=== PATIENT | female | born 1945 | race Caucasian/White ===

== ENCOUNTER 2016-11-10 07:24 | Outpatient (CLI) | payer MEDICARE, OTHER | END 2016-11-10 07:25 | disposition home or self-care (01) | DX: E11.42 Type 2 diabetes mellitus with diabetic polyneuropathy (principal) ==

== ENCOUNTER 2016-12-17 17:03 | Outpatient (CLI) | payer MEDICARE, OTHER | END 2016-12-17 17:04 | disposition home or self-care (01) | DX: N28.1 Cyst of kidney, acquired (principal); R93.2 Abnormal findings on diagnostic imaging of liver and biliary tract; R10.9 Unspecified abdominal pain; R14.0 Abdominal distension (gaseous) ==

== ENCOUNTER 2016-12-23 07:45 | Outpatient (CLI) | payer MEDICARE, OTHER | END 2016-12-23 07:46 | disposition home or self-care (01) | DX: R10.9 Unspecified abdominal pain (principal); R14.0 Abdominal distension (gaseous); R19.7 Diarrhea, unspecified; Z79.899 Other long term (current) drug therapy ==

== ENCOUNTER 2016-12-27 07:27 | Outpatient (CLI) | payer MEDICARE, OTHER | END 2016-12-27 07:28 | disposition home or self-care (01) | DX: E11.42 Type 2 diabetes mellitus with diabetic polyneuropathy (principal) ==

== ENCOUNTER 2016-12-29 12:35 | Outpatient (CLI) | payer MEDICARE, OTHER ==
[2016-12-29] MEDS ORDERED: IOPAMIDOL-300 100 ML VIAL IVP ONE (14:02)
[2016-12-29] MEDS ORDERED: IOPAMIDOL-300 50 ML VIAL PO ONE (19:19)
== END 2016-12-29 12:36 | disposition home or self-care (01) ==
DX: R93.5 Abnormal findings on diagnostic imaging of other abdominal regions, including retroperitoneum (principal); K76.0 Fatty (change of) liver, not elsewhere classified
CPT/HCPCS: 74170; Q9967

== ENCOUNTER 2017-02-09 13:14 | Outpatient (CLI) | payer MEDICARE, OTHER | END 2017-02-09 13:15 | disposition home or self-care (01) | DX: Z12.31 Encounter for screening mammogram for malignant neoplasm of breast (principal) ==

== ENCOUNTER 2017-05-09 08:00 | Outpatient (CLI) | payer MEDICARE, OTHER ==
[2017-05-09 12:09] LABS: ALBUMIN/GLOBULIN RATIO 1.2 (1.0-2.2); BILIRUBIN,TOTAL 0.7 mg/dL (0.2-1.0); BUN - BLOOD UREA NITROGEN 19 mg/dL (6-20); CALCIUM 9.1 mg/dL (8.5-10.3); CARBON DIOXIDE - CO2 28 mmol/L (21-32); CHLORIDE 102 mmol/L (101-111); CHOL/HDL RATIO 2.8 (<4.4); CHOLESTEROL 128 mg/dL; GFR - MDRD 55 (>89); GLUCOSE 136 mg/dL (70-100); HDL CHOLESTEROL 46 mg/dL; LDL/HDL RATIO 1.4 (<4.4); POTASSIUM 4.3 mmol/L (3.5-5.0); SODIUM 139 mmol/L (135-145); TOTAL PROTEIN 6.9 g/dL (6.7-8.2); TRIGLYCERIDES 80 mg/dL; VLDL CHOLESTEROL 16 mg/dL
[2017-05-09 12:13] LABS: HEMOGLOBIN A1C 0.53 g/dL
== END 2017-05-09 08:01 | disposition home or self-care (01) ==
LOC: LAB.F 08:00
PROVIDERS: ATTEND Family Medicine
DX: E11.42 Type 2 diabetes mellitus with diabetic polyneuropathy (principal); E78.5 Hyperlipidemia, unspecified; E03.9 Hypothyroidism, unspecified; I10 Essential (primary) hypertension
CPT/HCPCS: 36415; 80053; 80061; 83036; 84443

== ENCOUNTER 2017-05-12 14:33 | Outpatient (CLI) | payer MEDICARE, OTHER ==
[2017-05-12 19:35] LABS: BILIRUBIN,URINE NEGATIVE (NEGATIVE); UA CHARGE (STRIP ONLY) YES
== END 2017-05-12 14:34 | disposition home or self-care (01) ==
LOC: LAB.R 14:33
PROVIDERS: ATTEND Physician Assistant Medical
DX: N39.0 Urinary tract infection, site not specified (principal)
CPT/HCPCS: 81001; 81003

== ENCOUNTER 2017-11-21 07:48 | Outpatient (CLI) | payer MEDICARE, OTHER ==
[2017-11-21 10:36] LABS: BASOPHILS # (AUTO) 0.1 10^3/uL (0.0-0.1); BASOPHILS % (AUTO) 1.1 %; EOSINOPHILS # (AUTO) 0.5 10^3/uL (0.0-0.7); EOSINOPHILS % (AUTO) 4.7 %; LYMPHOCYTES # (AUTO) 2.5 10^3/uL (1.5-3.5); LYMPHOCYTES % (AUTO) 26.3 %; MEAN CORPUSCULAR HEMOGLOBIN 26.9 pg (27.0-31.0); MEAN CORPUSCULAR HGB CONC 32.8 g/dL (32.0-36.0); MEAN CORPUSCULAR VOLUME 81.9 fL (81.0-99.0); MONOCYTES # (AUTO) 0.9 10^3/uL (0.0-1.0); NEUTROPHILS # (AUTO) 5.7 10^3/uL (1.5-6.6); NEUTROPHILS % (AUTO) 58.9 %; PLT - PLATELET COUNT 320 10^3/uL (130-450); RED CELL DISTRIBUTION WIDTH 16.1 % (12.0-15.0); WHITE BLOOD COUNT 9.7 x10^3/uL (4.8-10.8)
[2017-11-21 12:19] LABS: BUN - BLOOD UREA NITROGEN 21 mg/dL (6-20); CALCIUM 8.7 mg/dL (8.5-10.3); CARBON DIOXIDE - CO2 26 mmol/L (21-32); CHLORIDE 102 mmol/L (101-111); CHOL/HDL RATIO 3.1 (<4.4); CHOLESTEROL 133 mg/dL; GFR - MDRD 55 (>89); GLUCOSE 114 mg/dL (70-100); HDL CHOLESTEROL 43 mg/dL; LDL CHOLESTEROL,CALCULATED 63 mg/dL; LDL/HDL RATIO 1.5 (<4.4); SODIUM 135 mmol/L (135-145); VLDL CHOLESTEROL 27 mg/dL
[2017-11-21 12:28] LABS: HB2 TOTAL 11.8 g/dL; HEMOGLOBIN A1C 0.54 g/dL; HEMOGLOBIN A1C % 6.3 % (4.6-6.2)
== END 2017-11-21 07:49 | disposition home or self-care (01) ==
LOC: LAB.F 07:48
PROVIDERS: ATTEND Family Medicine
DX: E11.42 Type 2 diabetes mellitus with diabetic polyneuropathy (principal); I10 Essential (primary) hypertension; E78.00 Pure hypercholesterolemia, unspecified; E03.9 Hypothyroidism, unspecified; D64.9 Anemia, unspecified
CPT/HCPCS: 36415; 80048; 80061; 83036; 83721; 84443; 85025

== ENCOUNTER 2017-12-22 08:00 | Outpatient (CLI) | payer MEDICARE, OTHER ==
[2017-12-22 18:45] LABS: CLARITY,URINE CLOUDY (CLEAR)
[2017-12-22 18:46] LABS: BACTERIA,URINE Rare /HPF (None Seen); RBC,URINE TNTC /HPF (0-5); SQUAMOUS EPITHELIAL CELL,UR RARE Squamous (<= Few)
== END 2017-12-22 08:01 ==
LOC: LAB.R 08:00
PROVIDERS: ATTEND Physician Assistant Medical
DX: N39.0 Urinary tract infection, site not specified (principal)
CPT/HCPCS: 81001; 87086

== ENCOUNTER 2018-06-13 13:38 | Outpatient (CLI) | payer MEDICARE, OTHER ==
--- NOTE | 2018-06-14 09:09 | Mammography Report ---
Reason: SCREENING MAMMO Procedure Date: 06/13/2018 Accession Number: [id number] / [id number] Procedure: DORINDA - Screening Mammo Dig Bilat CPT Code: FULL RESULT: EXAM: Screening Mammo Dig Bilat DATE: 06/13/2018 2:08 PM CLINICAL HISTORY: 73-year-old female with family history of breast cancer in the mother at age 50 and the aunt at age 60, the grandmother age 60 and a cousin at age 40 as well as a male relative at age 55. TECHNIQUE: Bilateral CC and MLO views were obtained. COMPARISON: 02/09/2017, 01/21/2016, 12/16/2014, 11/29/2013. FINDINGS: The breasts demonstrate heterogeneously dense fibroglandular parenchyma bilaterally. Coarse typically benign calcifications are seen bilaterally. No suspicious masses, clustered microcalcifications, or regions of architectural distortion are identified. IMPRESSION: Benign findings RECOMMENDATION: Routine annual screening unless otherwise clinically indicated. BIRADS CATEGORY 2: Benign findings STANDARD QUALIFYING STATEMENTS: 1. This examination was reviewed without the aid of Computer-Aided Detection (CAD). 2. A negative or benign imaging report should not delay biopsy if clinically suspicious findings are present. Consider surgical consultation if warrented. More than 5% of cancers are not identified by imaging. 3. Dense breasts may obscure an underlying neoplasm.
== END 2018-06-13 13:39 | disposition home or self-care (01) ==
LOC: DI 13:38
DX: Z12.31 Encounter for screening mammogram for malignant neoplasm of breast (principal); Z80.3 Family history of malignant neoplasm of breast
CPT/HCPCS: 77067

== ENCOUNTER 2018-07-04 07:55 | Outpatient (CLI) | payer MEDICARE, OTHER ==
[2018-07-04 11:04] LABS: HGB - HEMOGLOBIN 11.4 g/dL (12.0-16.0); MEAN CORPUSCULAR HEMOGLOBIN 26.6 pg (27.0-31.0); MEAN CORPUSCULAR HGB CONC 32.3 g/dL (32.0-36.0); MEAN CORPUSCULAR VOLUME 82.4 fL (81.0-99.0); MEAN PLATELET VOLUME 9.4 fL (7.9-10.8); RED BLOOD COUNT 4.27 10^6/uL (4.20-5.40); RED CELL DISTRIBUTION WIDTH 16.7 % (12.0-15.0)
[2018-07-04 11:09] LABS: ALBUMIN/GLOBULIN RATIO 1.2 (1.0-2.2); BILIRUBIN,TOTAL 0.4 mg/dL (0.2-1.0); CALCIUM 9.2 mg/dL (8.5-10.3); TOTAL PROTEIN 7.4 g/dL (6.7-8.2)
[2018-07-04 11:17] LABS: HEMOGLOBIN A1C 0.53 g/dL; HEMOGLOBIN A1C % 6.2 % (4.6-6.2)
[2018-07-04 11:25] LABS: THYROID STIMULATING HORMONE 1.77 uIU/mL (0.34-5.60)
== END 2018-07-04 07:56 | disposition home or self-care (01) ==
LOC: LAB.F 07:55
PROVIDERS: ATTEND Internal Medicine
DX: E53.8 Deficiency of other specified B group vitamins (principal); E11.42 Type 2 diabetes mellitus with diabetic polyneuropathy; E03.9 Hypothyroidism, unspecified
CPT/HCPCS: 36415; 80053; 82043; 82607; 83036; 84443; 85027

== ENCOUNTER 2018-09-25 08:14 | Outpatient (CLI) | payer MEDICARE, OTHER ==
--- NOTE | 2018-09-25 09:34 | DEXA Report ---
Reason: ASYMPTOMATIC MENOPAUSAL STATE Procedure Date: 09/25/2018 Accession Number: [id number] / [id number] Procedure: DEX - Dexa Spine and/or Hip CPT Code: FULL RESULT: EXAM: Dexa Spine and/or Hip DATE: 09/25/2018 8:37 AM CLINICAL HISTORY: ASYMPTOMATIC MENOPAUSAL STATE TECHNIQUE: Dual energy x-ray absorptiometry (DXA) was performed on a [email or web address] System. Regions measured are the AP Spine, femoral neck, and if needed forearm. COMPARISON: None. In accordance with the International Society for Clinical Densitometry (ISCD) guidelines, data from previous exams may be reanalyzed using current recommendations and techniques. This is done to allow a more accurate basis for comparison with the current study. FINDINGS: The data for the lumbar spine is as follows: BMD (g/cm/cm) T-SCORE Z-SCORE REGION L1 1.268 1.2 1.8 L2 1.440 2.0 2.7 L3 1.564 3.0 3.7 L4 1.693 4.1 4.8 TOTAL 1.494 2.6 3.3 NOTE: All evaluable vertebrae are used for classification The data for the hip is as follows: BMD (g/cm/cm) T-SCORE Z-SCORE REGION Neck 0.994 -0.3 0.8 TOTAL 1.113 0.8 1.7 NOTE: The femoral neck or total proximal femur, whichever is lowest, is used for classification. IMPRESSION: THE WHO CLASSIFICATION BASED ON THE INTERNATIONAL REFERENCE STANDARD IS NORMAL. THE FRACTURE RISK IS NOT INCREASED. RECOMMENDATION: Patients with diagnosis of osteoporosis or osteopenia should have regular bone mineral density assessment. For those eligible for Medicare, routine testing is allowed once every 2 years. Testing frequency can be increased for patients who have rapidly progressing disease or for those who are receiving medical therapy to restore bone mass. COMMENT: World Health Organization (WHO) definitions for osteoporosis and osteopenia: NORMAL BMD: T-score at -1.0 or higher, fracture risk is low OSTEOPENIA BMD: T-score between -1.0 and -2.5, fracture risk is increased. OSTEOPOROSIS BMD: T-score at -2.5 or lower, fracture risk is high. National Osteoporosis Foundation recommends: 1. Obtain adequate dietary calcium (at least 1200 mg per day) and vitamin D (400-800 international units per day). 2. Participate, as appropriate, in regular weightbearing and muscle-strengthening exercise. 3. Avoid tobacco use and reduce alcohol and caffeine intake. 4. For more detailed information see the website at www.NOF.org.
== END 2018-09-25 08:15 | disposition home or self-care (01) ==
LOC: DI 08:14
PROVIDERS: ATTEND Internal Medicine
DX: Z78.0 Asymptomatic menopausal state (principal)
CPT/HCPCS: 77080

== ENCOUNTER 2018-09-27 07:39 | Outpatient (CLI) | payer MEDICARE, OTHER ==
[2018-09-27 12:36] LABS: HGB - HEMOGLOBIN 11.7 g/dL (12.0-16.0); MEAN CORPUSCULAR HGB CONC 33.7 g/dL (32.0-36.0); MEAN CORPUSCULAR VOLUME 82.9 fL (81.0-99.0); MEAN PLATELET VOLUME 9.1 fL (7.9-10.8); RED BLOOD COUNT 4.18 10^6/uL (4.20-5.40); RED CELL DISTRIBUTION WIDTH 16.4 % (12.0-15.0); WHITE BLOOD COUNT 8.6 x10^3/uL (4.8-10.8)
[2018-09-27 12:56] LABS: ALBUMIN 3.8 g/dL (3.2-5.5); ALBUMIN/GLOBULIN RATIO 1.1 (1.0-2.2); ALKALINE PHOSPHATASE 61 IU/L (42-121); ALT ALANINE AMINOTRANSFERASE 49 IU/L (10-60); AST ASPARTATE AMINOTRANSFERASE 37 IU/L (10-42); BILIRUBIN,TOTAL 0.6 mg/dL (0.2-1.0); BUN - BLOOD UREA NITROGEN 43 mg/dL (6-20); CALCIUM 8.7 mg/dL (8.5-10.3); CARBON DIOXIDE - CO2 25 mmol/L (21-32); CHLORIDE 103 mmol/L (101-111); CHOL/HDL RATIO 3.7 (<4.4); CHOLESTEROL 117 mg/dL; CREATININE 1.6 mg/dL (0.4-1.0); GFR - MDRD 32 (>89); GLUCOSE 112 mg/dL (70-100); HDL CHOLESTEROL 32 mg/dL; LDL CHOLESTEROL,CALCULATED 68 mg/dL; LDL/HDL RATIO 2.1 (<4.4); SODIUM 137 mmol/L (135-145); TOTAL PROTEIN 7.2 g/dL (6.7-8.2); VLDL CHOLESTEROL 17 mg/dL
[2018-09-27 14:07] LABS: HB2 TOTAL 12.5 g/dL; HEMOGLOBIN A1C 0.54 g/dL; HEMOGLOBIN A1C % 6.1 % (4.6-6.2)
== END 2018-09-27 07:40 | disposition home or self-care (01) ==
LOC: LAB.F 07:39
PROVIDERS: ATTEND Internal Medicine
DX: E11.42 Type 2 diabetes mellitus with diabetic polyneuropathy (principal); E03.9 Hypothyroidism, unspecified; E53.8 Deficiency of other specified B group vitamins
CPT/HCPCS: 36415; 80053; 80061; 83036; 83721; 84443; 85027

== ENCOUNTER 2019-04-03 07:02 | Outpatient (CLI) | payer MEDICARE, OTHER ==
[2019-04-03 10:18] LABS: HGB - HEMOGLOBIN 10.6 g/dL (12.0-16.0); MEAN CORPUSCULAR HEMOGLOBIN 27.8 pg (27.0-31.0); MEAN CORPUSCULAR HGB CONC 31.9 g/dL (32.0-36.0); MEAN CORPUSCULAR VOLUME 87.1 fL (81.0-99.0); MEAN PLATELET VOLUME 10.8 fL (7.9-10.8); RED BLOOD COUNT 3.81 10^6/uL (4.20-5.40); RED CELL DISTRIBUTION WIDTH 14.8 % (12.0-15.0)
[2019-04-03 10:50] LABS: ALBUMIN 3.8 g/dL (3.2-5.5); ALBUMIN/GLOBULIN RATIO 1.1 (1.0-2.2); ALKALINE PHOSPHATASE 59 IU/L (42-121); ALT ALANINE AMINOTRANSFERASE 24 IU/L (10-60); AST ASPARTATE AMINOTRANSFERASE 22 IU/L (10-42); BILIRUBIN,TOTAL 0.4 mg/dL (0.2-1.0); BUN - BLOOD UREA NITROGEN 44 mg/dL (6-20); CALCIUM 9.4 mg/dL (8.5-10.3); CARBON DIOXIDE - CO2 25 mmol/L (21-32); CHLORIDE 102 mmol/L (101-111); CHOL/HDL RATIO 3.6 (<4.4); CHOLESTEROL 148 mg/dL; CREATININE 1.6 mg/dL (0.4-1.0); GFR - MDRD 32 (>89); GLUCOSE 132 mg/dL (70-100); HDL CHOLESTEROL 41 mg/dL; LDL CHOLESTEROL,CALCULATED 89 mg/dL; LDL/HDL RATIO 2.2 (<4.4); SODIUM 139 mmol/L (135-145); TOTAL PROTEIN 7.2 g/dL (6.7-8.2); VLDL CHOLESTEROL 18 mg/dL
[2019-04-03 10:51] LABS: HB2 TOTAL 10.9 g/dL; HEMOGLOBIN A1C 0.49 g/dL; HEMOGLOBIN A1C % 6.3 % (4.6-6.2)
== END 2019-04-03 07:03 | disposition home or self-care (01) ==
LOC: LAB.S 07:02
PROVIDERS: ATTEND Internal Medicine
DX: E78.5 Hyperlipidemia, unspecified (principal); E11.42 Type 2 diabetes mellitus with diabetic polyneuropathy; E03.9 Hypothyroidism, unspecified; E53.8 Deficiency of other specified B group vitamins
CPT/HCPCS: 36415; 80053; 80061; 83036; 83721; 84443; 85027

== ENCOUNTER 2019-06-01 11:03 | Emergency (ER) | payer MEDICARE, OTHER ==
[2019-06-01 11:08] VITALS: BP 144/72
[2019-06-01 11:54] LABS: BILIRUBIN,URINE NEGATIVE (NEGATIVE); GLUCOSE, URINE (UA) NEGATIVE (NEGATIVE); KETONES,URINE (UA) NEGATIVE (NEGATIVE); LEUKOCYTE ESTERASE, URINE TRACE (NEGATIVE); NITRITE,URINE NEGATIVE (NEGATIVE); OCCULT BLOOD,URINE LARGE (NEGATIVE); PROTEIN,URINE 100 mg/dL (NEGATIVE); UROBILINOGEN,URINE 0.2 (NORMAL) E.U./dL (NORMAL)
--- NOTE | 2019-06-01 11:55 | ED Physician Documentation ---
History of Present Illness - Stated complaint Stated Complaint: FEM - Chief complaint Chief Complaint: General - History obtained from History obtained from: Patient - History of Present Illness Timing: How many weeks ago (2) Pain level max: 4 Pain level now: 3 - Additonal information Additional information: 74-year-old female Presents to the emergency room with dysuria and hematuria for the past 2 to 3 days. Is been ongoing for 2 weeks, self treated with ciprofloxacin, 250 mg p.o. twice daily. She states that her doctor prescribes this for her in case she has blood in her urine after riding the lawnmower. No fevers. No vomiting. No diarrhea or constipation. She took 6 days of ciprofloxacin. Symptoms recurred 2 days ago. Review of Systems Constitutional: denies: Fever, Chills Skin: denies: Rash Musculoskeletal: denies: Neck pain, Back pain Neurologic: denies: Headache PD PAST MEDICAL HISTORY - Past Medical History Past Medical History: No - Past Surgical History Past Surgical History: No - Present Medications Home Medications: Ambulatory Orders Medication Instructions Recorded Confirmed Aspirin [Sinan] 325 mg PO ONCE 06/01/19 06/01/19 Atorvastatin [Lipitor] 40 mg 06/01/19 Bifidobacterium Infantis [Align] 4 mg PO 06/01/19 Cephalexin [Keflex] 500 mg PO Q6H #20 capsule 06/01/19 Cyanocobalamin (Vitamin B-12) 3,000 mcg SL 06/01/19 [B-12] Glimepiride 1 mg PO 06/01/19 Hydrochlorothiazide 06/01/19 Levothyroxine [Synthroid] 50 mcg PO QDAC 06/01/19 06/01/19 Losartan [Cozaar] 100 mg PO DAILY 06/01/19 06/01/19 Metformin HCl [Metformin HCl ER] 500 mg PO 06/01/19 Omeprazole 06/01/19 - Allergies Allergies/Adverse Reactions: Allergies Allergy/AdvReac Type Severity Reaction Status Date / Time amlodipine Allergy Unknown Verified 06/01/19 11:13 Calcium Channel Blocking Allergy Unknown Verified 06/01/19 11:13 Agent Dilt guaifenesin [From Robitussin] Allergy Unknown Verified 06/01/19 11:13 - Living Situation Living Situation: reports: With family Living Arrangement: reports: At home PD ED PE NORMAL - Vitals Vital signs reviewed: Yes - General General: Alert and oriented X 3, No acute distress - HEENT HEENT: Moist mucous membranes - Neck Neck: Supple, no meningeal sign - Cardiac Cardiac: RRR - Respiratory Respiratory: No respiratory distress, Clear bilaterally - Abdomen Abdomen: Soft, Non tender, Non distended - Back Back: No CVA TTP - Derm Derm: Warm and dry - Neuro Neuro: Alert and oriented X 3 - Psych Psych: Normal mood, Normal affect Results - Vitals Vitals: Vital Signs - 24 hr 06/01/19 11:05 Temperature 36.7 C Heart Rate 103 H Respiratory 18 Rate Blood Pressure 144/72 H O2 Saturation 99 Oxygen O2 Source Room air - Labs Labs: Laboratory Tests 06/01/19 11:12 Urine Color RED/BLOODY Urine Clarity BLOODY Urine pH 7.0 Ur Specific [place] 1.010 Urine Protein 100 H Urine Glucose (UA) NEGATIVE Urine Ketones NEGATIVE Urine Occult Blood LARGE H Urine Nitrite NEGATIVE Urine Bilirubin NEGATIVE Urine Urobilinogen 0.2 (NORMAL) Ur Leukocyte Esterase TRACE H Urine RBC TNTC H Urine WBC >25 H Ur Squamous Epith Cells RARE Squamous Urine Bacteria Rare Ur Microscopic Review INDICATED Urine Culture Comments INDICATED PD MEDICAL DECISION MAKING - ED course Complexity details: reviewed results, re-evaluated patient, considered lana brooks, d/w patient ED course: 74-year-old female with a UTI. Will place on antibiotics and follow-up closely with her doctor. She is well-appearing, nontoxic. Afebrile. Patient counseled regarding signs and symptoms for which I believe and urgent re-evaluation would be necessary. Patient with good understanding of and agreement to plan and is comfortable going home at this time This document was made in part using voice recognition software. While efforts are made to proofread this document, sound alike and grammatical errors may occur. Departure - Departure Disposition: 01 Home, Self Care Clinical Impression: UTI (urinary tract infection) Qualifiers: Urinary tract infection type: acute cystitis Hematuria presence: with hematuria Qualified Code(s): N30.01 - Acute cystitis with hematuria Condition: Good Instructions: ED UTI Cystitis Female Follow-Up: Alan Pedraza MD [Primary Care Provider] - Within 1 week Prescriptions: Cephalexin [Keflex] 500 mg PO Q6H #20 capsule Comments: Return if you worsen. Take all antibiotics until gone. Discharge Date/Time: 06/01/19 12:39
[2019-06-01 11:59] LABS: CLARITY,URINE BLOODY (CLEAR)
[2019-06-01 12:00] LABS: BACTERIA,URINE Rare /HPF (None Seen); RBC,URINE TNTC /HPF (0-5); SQUAMOUS EPITHELIAL CELL,UR RARE Squamous (<= Few)
[2019-06-01] MEDS ORDERED: cephALEXin 250 MG CAPSULE PO STA (12:32)
== END 2019-06-01 12:39 | disposition home or self-care (01) ==
LOC: ED 11:03
DX: N30.01 Acute cystitis with hematuria (principal)
CPT/HCPCS: 81001; 87086; 99283; 99284; A9270; 81003

== ENCOUNTER 2019-06-09 06:56 | Emergency (ER) | payer MEDICARE, OTHER ==
[2019-06-09 07:02] VITALS: BP 144/87
--- NOTE | 2019-06-09 07:16 | ED Physician Documentation ---
PD HPI FEMALE - Stated complaint Stated Complaint: FEMALE - Chief complaint Chief Complaint: UTI - History obtained from History obtained from: Patient - History of Present Illness Timing - onset: How many days ago (3) Timing - duration: Days (3 days of symptoms again. She has been on antibiotics for bladder infection and had improved and then symptoms again 3 to 4 days after stopping them. She was seen again and treated with another antibiotic (the first was Cipro and then second 1 cephalexin). The culture on that one showed mixed suma. She did improve readily however with the antibiotic and has symptoms again now off of it for 3 days.) Timing - details: Gradual onset Associated symptoms: Dysuria, Urinary frequency, Hematuria. No: Fever, Abdominal pain, Back pain, Pelvic pain, Vaginal discharge, Genital sore/lesion Contributing factors: No: Exposed to STD Recently seen: Clinic, Emergency Dept (06/01 for UTI and Rx with Cephalexin) Review of Systems Constitutional: denies: Fever, Chills, Myalgias Throat: denies: Sore throat Respiratory: denies: Cough GI: denies: Abdominal Pain, Nausea, Vomiting, Diarrhea : reports: Dysuria, Frequency, Hematuria. denies: Discharge Skin: denies: Rash, Lesions PD PAST MEDICAL HISTORY - Past Medical History Past Medical History: Yes Cardiovascular: Hypertension, High cholesterol Endocrine/Autoimmune: Type 2 diabetes, HyPOthyroidism - Past Surgical History Past Surgical History: No - Present Medications Home Medications: Ambulatory Orders Medication Instructions Recorded Confirmed Aspirin [Sinan] 325 mg PO ONCE 06/01/19 06/01/19 Atorvastatin [Lipitor] 40 mg 06/01/19 Bifidobacterium Infantis [Align] 4 mg PO 06/01/19 Cyanocobalamin (Vitamin B-12) 3,000 mcg SL 06/01/19 [B-12] Glimepiride 1 mg PO 06/01/19 Hydrochlorothiazide 06/01/19 Levothyroxine [Synthroid] 50 mcg PO QDAC 06/01/19 06/01/19 Losartan [Cozaar] 100 mg PO DAILY 06/01/19 06/01/19 Metformin HCl [Metformin HCl ER] 500 mg PO 06/01/19 Omeprazole 06/01/19 Naproxen 375 mg PO BID #20 tablet 06/09/19 Phenazopyridine HCl [Pyridium] 100 mg PO TID PRN #15 tablet 06/09/19 Sulfamethox/Trimeth 800/160 1 each PO BID #14 tablet 06/09/19 [Bactrim Ds 800/160] - Allergies Allergies/Adverse Reactions: Allergies Allergy/AdvReac Type Severity Reaction Status Date / Time amlodipine Allergy Unknown Verified 06/09/19 07:02 Calcium Channel Blocking Allergy Unknown Verified 06/09/19 07:02 Agent Dilt guaifenesin [From Robitussin] Allergy Unknown Verified 06/09/19 07:02 - Social History Does the pt smoke?: No Smoking Status: Never smoker Does the pt drink ETOH?: Yes Does the pt have substance abuse?: No PD ED PE NORMAL - Vitals Vital signs reviewed: Yes - General General: Alert and oriented X 3, No acute distress, Well developed/nourished - Abdomen Abdomen: Soft, Non tender - Female Female : Deferred - Back Back: No CVA TTP - Derm Derm: Normal color, Warm and dry - Neuro Neuro: Alert and oriented X 3, No motor deficit, Normal speech Results - Vitals Vitals: Vital Signs - 24 hr 06/09/19 07:00 Temperature 36 C L Heart Rate 90 Respiratory 18 Rate Blood Pressure 144/87 H O2 Saturation 99 Oxygen O2 Source Room air - Labs Labs: Laboratory Tests 06/09/19 07:05 Urine Color RED/BLOODY Urine Clarity CLOUDY Urine pH 6.5 Ur Specific [place] 1.015 Urine Protein 100 H Urine Glucose (UA) NEGATIVE Urine Ketones NEGATIVE Urine Occult Blood LARGE H Urine Nitrite NEGATIVE Urine Bilirubin NEGATIVE Urine Urobilinogen 0.2 (NORMAL) Ur Leukocyte Esterase TRACE H Urine RBC TNTC H Urine WBC 4-5 Ur Squamous Epith Cells RARE Squamous Urine Bacteria Few Ur Microscopic Review INDICATED Urine Culture Comments INDICATED PD MEDICAL DECISION MAKING - ED course Complexity details: reviewed old records, reviewed results, d/w patient Departure - Departure Disposition: 01 Home, Self Care Clinical Impression: UTI (urinary tract infection) Qualifiers: Urinary tract infection type: acute cystitis Hematuria presence: without hematuria Qualified Code(s): N30.00 - Acute cystitis without hematuria Condition: Stable Record reviewed to determine appropriate education?: Yes Instructions: Urinary Tract Infecs Women Follow-Up: Alan Pedraza MD [Primary Care Provider] - Prescriptions: Naproxen 375 mg PO BID #20 tablet Phenazopyridine HCl [Pyridium] 100 mg PO TID PRN #15 tablet PRN Reason: Abdominal Pain Sulfamethox/Trimeth 800/160 [Bactrim Ds 800/160] 1 each PO BID #14 tablet Comments: Use phenazopyridine 3 times a day for the discomfort. Ibuprofen or naproxen anti-inflammatory twice daily for inflammation of the urethra. Sometimes he can get urethral inflammation after an infection and that could be causing some of the symptoms even if there is not an infection still per se. We will treated as an infection still, since there are white cells and bacteria seen on the current urine test, but concurrently as inflammation as well. We will see what the culture results show in couple of days.
[2019-06-09 07:33] LABS: BILIRUBIN,URINE NEGATIVE (NEGATIVE); GLUCOSE, URINE (UA) NEGATIVE (NEGATIVE); KETONES,URINE (UA) NEGATIVE (NEGATIVE); LEUKOCYTE ESTERASE, URINE TRACE (NEGATIVE); NITRITE,URINE NEGATIVE (NEGATIVE); OCCULT BLOOD,URINE LARGE (NEGATIVE); PH,URINE 6.5 PH (5.0-7.5); PROTEIN,URINE 100 mg/dL (NEGATIVE); UROBILINOGEN,URINE 0.2 (NORMAL) E.U./dL (NORMAL)
[2019-06-09 07:36] LABS: CLARITY,URINE CLOUDY (CLEAR)
[2019-06-09 07:41] LABS: BACTERIA,URINE Few /HPF (None Seen); RBC,URINE TNTC /HPF (0-5); SQUAMOUS EPITHELIAL CELL,UR RARE Squamous (<= Few)
[2019-06-09] MEDS ORDERED: PHENAZOPYRIDINE 100 MG TABLET PO STA (07:48)
[2019-06-09] MEDS ORDERED: SULFAMETH/TRIMETH DS 800/160 MG TABLET PO STA (07:48)
== END 2019-06-09 08:06 | disposition home or self-care (01) ==
LOC: ED 06:56
DX: N30.01 Acute cystitis with hematuria (principal); I10 Essential (primary) hypertension; E11.9 Type 2 diabetes mellitus without complications; Z79.84 Long term (current) use of oral hypoglycemic drugs; Z79.82 Long term (current) use of aspirin
CPT/HCPCS: 81001; 87077; 87086; 87181; 99283; 99284; A9270; 81003

== ENCOUNTER 2019-06-13 10:02 | Outpatient (CLI) | payer MEDICARE, OTHER | END 2019-06-13 23:59 | LOC: LAB.R 10:02 | PROVIDERS: ATTEND Internal Medicine | DX: N30.90 Cystitis, unspecified without hematuria (principal) | CPT/HCPCS: 87086 ==

== ENCOUNTER 2019-08-12 07:58 | Outpatient (CLI) | payer MEDICARE, OTHER ==
[2019-08-12 08:32] LABS: CREATININE 1.8 mg/dL (0.4-1.0)
--- NOTE | 2019-08-12 21:56 | CT Report ---
Reason: GROSS HEMATURIA, Procedure Date: 08/12/2019 Accession Number: [id number] / [id number] Procedure: CT - Abdomen/Pelvis WO CPT Code: Final Report FULL RESULT: EXAM: CT ABDOMEN AND PELVIS (CT KUB) EXAM DATE: 08/12/2019 09:00 AM. CLINICAL HISTORY: Gross hematuria. COMPARISONS: ABDOMEN W/WO 12/29/2016 2:00 PM. TECHNIQUE: Routine axial helical CT imaging was performed through the abdomen and pelvis without IV contrast. Reconstructions: Coronal and sagittal. In accordance with CT protocol optimization, one or more of the following dose reduction techniques were utilized for this exam: automated exposure control, adjustment of mA and/or KV based on patient size, or use of iterative reconstructive technique. FINDINGS: Lung Bases: Unremarkable. Right Kidney/Ureter: No stones, hydronephrosis, or hydroureter. No perinephric fat stranding. Left Kidney/Ureter: No stones, hydronephrosis, or hydroureter. No perinephric fat stranding. Other Solid Organs: Stable inferior right lobe liver low-density. Noncontrast images of the solid organs are grossly unremarkable. Gallbladder/Bile Ducts: Unremarkable. Peritoneal Cavity: No free fluid, free air or nicolas adenopathy. Moderate diverticulosis, otherwise the bowel is grossly unremarkable. Normal appendix noted. Pelvic Organs: No bladder stones or wall thickening. Noncontrast images of the visualized pelvic organs are unremarkable. Vasculature: No aortic enlargement. Moderate atherosclerotic calcification. Other: Small fat-containing umbilical hernia. Multilevel degenerative lumbar disk disease with spinal stenosis. IMPRESSION: 1. No cause for hematuria identified. 2. Diverticulosis without diverticulitis. 3. Stable inferior right lobe liver low-density. 4. Chronic lumbar spine spondylosis. RADIA
== END 2019-08-12 07:59 | disposition home or self-care (01) ==
LOC: LAB 07:58
PROVIDERS: ATTEND Urology
DX: Z87.448 Personal history of other diseases of urinary system (principal); R31.0 Gross hematuria
CPT/HCPCS: 36415; 74176; 82565; 84520

== ENCOUNTER 2019-08-13 09:28 | Outpatient (CLI) | payer MEDICARE, OTHER ==
--- NOTE | 2019-08-14 08:25 | Mammography Report ---
Reason: ROUTINE MAMMO Procedure Date: 08/13/2019 Accession Number: [id number] / [id number] Procedure: MGS - Screening Mammo Dig Bilat CPT Code: Final Report FULL RESULT: EXAM: Screening Mammo Dig Bilat DATE: 08/13/2019 9:51 AM CLINICAL HISTORY: Screening encounter. TECHNIQUE: (B) - Bilateral CC and MLO views were obtained. COMPARISON: 06/13/2018 through 09/09/2009. PARENCHYMAL PATTERN: (A) - The breast(s) demonstrate(s) scattered fibroglandular densities. FINDINGS: Coarse typically benign calcifications are redemonstrated. There are no suspicious masses, calcifications, or areas of distortion. IMPRESSION: Benign findings. BI-RADS category 2. RECOMMENDATION: (ANNUAL) - Recommend routine annual screening mammography. BI-RADS CATEGORY: (2) - Benign Findings. STANDARD QUALIFYING STATEMENTS: 1. This examination was reviewed with the aid of Computer-Aided Detection (CAD). 2. A negative or benign imaging report should not preclude biopsy if clinically suspicious findings are present. 3. Dense breasts may obscure an underlying neoplasm. 4. This examination was reviewed without the aid of 3D breast imaging (tomosynthesis).
== END 2019-08-13 09:29 | disposition home or self-care (01) ==
LOC: DI.S 09:28
DX: Z12.31 Encounter for screening mammogram for malignant neoplasm of breast (principal)
CPT/HCPCS: 77067

== ENCOUNTER 2020-04-11 07:24 | Outpatient (CLI) | payer MEDICARE, OTHER ==
[2020-04-11 15:55] LABS: ALBUMIN/GLOBULIN RATIO 1.2 (1.0-2.2); ALKALINE PHOSPHATASE 56 IU/L (42-121); ALT ALANINE AMINOTRANSFERASE 22 IU/L (10-60); AST ASPARTATE AMINOTRANSFERASE 21 IU/L (10-42); BILIRUBIN,TOTAL 0.6 mg/dL (0.2-1.0); BUN - BLOOD UREA NITROGEN 44 mg/dL (6-20); CALCIUM 9.4 mg/dL (8.5-10.3); CARBON DIOXIDE - CO2 26 mmol/L (21-32); CHLORIDE 103 mmol/L (101-111); CHOL/HDL RATIO 3.9 (<4.4); CHOLESTEROL 153 mg/dL; CREATININE 1.7 mg/dL (0.4-1.0); GLUCOSE 119 mg/dL (70-100); HDL CHOLESTEROL 39 mg/dL; LDL CHOLESTEROL,CALCULATED 79 mg/dL; SODIUM 138 mmol/L (135-145); TOTAL PROTEIN 7.4 g/dL (6.7-8.2); VLDL CHOLESTEROL 35 mg/dL
[2020-04-11 16:09] LABS: HEMOGLOBIN A1C 0.5 g/dL; HEMOGLOBIN A1C % 6.3 % (4.6-6.2)
== END 2020-04-11 07:25 | disposition home or self-care (01) ==
LOC: LAB.S 07:24
PROVIDERS: ATTEND Internal Medicine
DX: E11.42 Type 2 diabetes mellitus with diabetic polyneuropathy (principal); I10 Essential (primary) hypertension; E78.5 Hyperlipidemia, unspecified; E03.9 Hypothyroidism, unspecified; N30.90 Cystitis, unspecified without hematuria
CPT/HCPCS: 36415; 80053; 80061; 83036; 83721

== ENCOUNTER 2020-07-02 10:00 | Outpatient (CLI) | payer MEDICARE, OTHER | END 2020-07-02 10:01 | disposition home or self-care (01) | LOC: LAB.R 10:00 | PROVIDERS: ATTEND Internal Medicine | DX: N30.90 Cystitis, unspecified without hematuria (principal) | CPT/HCPCS: 87086; 87181 ==

== ENCOUNTER 2020-09-10 07:56 | Outpatient (CLI) | payer MEDICARE, OTHER ==
[2020-09-10 15:43] LABS: BASOPHILS # (AUTO) 0.1 10^3/uL (0.0-0.1); BASOPHILS % (AUTO) 0.9 %; EOSINOPHILS # (AUTO) 0.3 10^3/uL (0.0-0.7); EOSINOPHILS % (AUTO) 2.9 %; HGB - HEMOGLOBIN 10.5 g/dL (12.0-16.0); LYMPHOCYTES # (AUTO) 2.7 10^3/uL (1.5-3.5); LYMPHOCYTES % (AUTO) 28.6 %; MEAN CORPUSCULAR HEMOGLOBIN 26.9 pg (27.0-31.0); MEAN CORPUSCULAR HGB CONC 30.8 g/dL (32.0-36.0); MEAN CORPUSCULAR VOLUME 87.4 fL (81.0-99.0); MEAN PLATELET VOLUME 10.7 fL (7.9-10.8); MONOCYTES # (AUTO) 1.1 10^3/uL (0.0-1.0); MONOCYTES % (AUTO) 11.5 %; NEUTROPHILS # (AUTO) 5.2 10^3/uL (1.5-6.6); NEUTROPHILS % (AUTO) 55.8 %; PLT - PLATELET COUNT 346 10^3/uL (130-450); RED CELL DISTRIBUTION WIDTH 15.7 % (12.0-15.0); WHITE BLOOD COUNT 9.3 x10^3/uL (4.8-10.8)
[2020-09-10 15:51] LABS: ALBUMIN 3.8 g/dL (3.2-5.5); ALBUMIN/GLOBULIN RATIO 1.1 (1.0-2.2); BILIRUBIN,TOTAL 0.7 mg/dL (0.2-1.0); CALCIUM 9.3 mg/dL (8.5-10.3); CREATININE 1.6 mg/dL (0.4-1.0); TOTAL PROTEIN 7.4 g/dL (6.7-8.2)
[2020-09-10 18:44] LABS: HEMOGLOBIN A1c% 6.6 % (4.27-6.07)
== END 2020-09-10 07:57 | disposition home or self-care (01) ==
LOC: LAB.S 07:56
PROVIDERS: ATTEND Internal Medicine
DX: I10 Essential (primary) hypertension (principal); E11.42 Type 2 diabetes mellitus with diabetic polyneuropathy
CPT/HCPCS: 36415; 80053; 83036; 85025

== ENCOUNTER 2020-12-23 09:11 | Observation (INO) | payer MEDICARE, OTHER ==
[2020-12-23] MEDS ORDERED: SODIUM CHLORIDE 0.9% 1,000 ML IV STA ×2 (09:45→12:26)
--- NOTE | 2020-12-23 09:47 | ED Physician Documentation ---
PD HPI DYSPNEA - Stated complaint Stated Complaint: SOA/FATIGUE - Chief complaint Chief Complaint: Resp - History obtained from History obtained from: Patient - History of Present Illness Timing - onset: How many days ago (2) Timing - onset during: Rest Timing - duration: Days (2) Timing - details: Gradual onset, Still present Inciting event(s): URI Improved by: Rest Worsened by: Exertion, Coughing Associated symptoms: Cough, Other (fatigue). No: Fever, Wheezing, Chest pain / discomfort, Palpitations, Diaphoresis, Bilateral edema, Unilateral edema, Anxiety Similar symptoms before: Has not had sx before Recently seen: Not recently seen - Additional information Additional information: Previously well 75-year-old female has developed a cough productive of yellow phlegm without fever over the past 2 days. She states that she is feeling short of breath but she does not have any wheeze. She is not feeling that she is having a hard time getting a full deep breath she just has to breathe more rapidly. She is getting some cramps in her legs and in her back as well. Review of Systems Constitutional: reports: Fever, Fatigue Eyes: denies: Decreased vision Ears: denies: Ear pain Nose: reports: Congestion. denies: Rhinorrhea / runny nose Throat: denies: Sore throat Cardiac: denies: Chest pain / pressure, Palpitations, Pedal edema, Calf pain Respiratory: reports: Dyspnea, Cough. denies: Hemoptysis, Wheezing GI: denies: Abdominal Pain, Nausea, Vomiting, Constipation, Diarrhea : denies: Dysuria, Frequency PD PAST MEDICAL HISTORY - Past Medical History Cardiovascular: Hypertension, High cholesterol Endocrine/Autoimmune: Type 2 diabetes, HyPOthyroidism - Past Surgical History Past Surgical History: No - Present Medications Home Medications: Ambulatory Orders Medication Instructions Recorded Confirmed Aspirin [Sinan] 325 mg PO ONCE 06/01/19 06/01/19 Atorvastatin [Lipitor] 40 mg 06/01/19 Bifidobacterium Infantis [Align] 4 mg PO 06/01/19 Cyanocobalamin (Vitamin B-12) 3,000 mcg SL 06/01/19 [B-12] Glimepiride 1 mg PO 06/01/19 Hydrochlorothiazide 06/01/19 Levothyroxine [Synthroid] 50 mcg PO QDAC 06/01/19 06/01/19 Losartan [Cozaar] 100 mg PO DAILY 06/01/19 06/01/19 Metformin HCl [Metformin HCl ER] 500 mg PO 06/01/19 Omeprazole 06/01/19 Naproxen 375 mg PO BID #20 tablet 06/09/19 Phenazopyridine HCl [Pyridium] 100 mg PO TID PRN #15 tablet 06/09/19 Sulfamethox/Trimeth 800/160 1 each PO BID #14 tablet 06/09/19 [Bactrim Ds 800/160] - Allergies Allergies/Adverse Reactions: Allergies Allergy/AdvReac Type Severity Reaction Status Date / Time amlodipine Allergy Unknown Verified 12/23/20 09:27 Calcium Channel Blocking Allergy Unknown Verified 12/23/20 09:27 Agent Dilt guaifenesin [From Robitussin] Allergy Unknown Verified 12/23/20 09:27 - Social History Does the pt smoke?: No Smoking Status: Never smoker Does the pt drink ETOH?: Yes Does the pt have substance abuse?: No PD ED PE NORMAL - Vitals Vital signs reviewed: Yes (tachy and hypertensive ) - General General: Alert and oriented X 3, Well developed/nourished, Other (tachypneic at rest) - HEENT HEENT: Atraumatic, PERRL, EOMI - Neck Neck: Supple, no meningeal sign, No bony TTP - Cardiac Cardiac: No murmur, Other (tachy to 110) - Respiratory Respiratory: Other (tachypneic with clear sounds and no wheezes) - Abdomen Abdomen: Soft, Non tender - Back Back: No CVA TTP, No spinal TTP - Derm Derm: Normal color, Warm and dry, No rash - Extremities Extremities: No deformity, No edema - Neuro Neuro: Alert and oriented X 3, 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, No motor deficit, No sensory deficit, Normal speech Eye Opening: Spontaneous Motor: Obeys Commands Verbal: Oriented GCS Score: 15 - Psych Psych: Normal mood, Normal affect Results - Vitals Vitals: Vital Signs - 24 hr 12/23/20 12/23/20 12/23/20 09:20 10:22 11:21 Temperature 37 C Heart Rate 113 H 97 88 Respiratory 20 23 22 Rate Blood Pressure 158/96 H 156/88 H 155/95 H O2 Saturation 97 98 98 12/23/20 12/23/20 12/23/20 12:30 14:01 14:27 Temperature 35.8 C L Heart Rate 104 H 96 97 Respiratory 25 H 21 22 Rate Blood Pressure 150/77 H 148/89 H 170/97 H O2 Saturation 96 98 97 Oxygen O2 Source Room air - EKG (time done) 1449 Rate: Rate (enter#) (94) Rhythm: NSR Ischemia: Non specific changes Compare to prior EKG: Old EKG unavailable Computer interpretation: Agree with computer - Labs Labs: Laboratory Tests 12/23/20 12/23/20 12/23/20 09:45 09:45 10:08 WBC 12.5 H RBC 4.25 Hgb 11.4 L Hct 35.7 L MCV 84.0 MCH 26.8 L MCHC 31.9 L RDW 16.5 H Plt Count 271 MPV 9.6 Neut # (Auto) 8.1 H Lymph # (Auto) 2.9 Yolo # (Auto) 1.1 H Eos # (Auto) 0.3 Baso # (Auto) 0.1 Absolute Nucleated RBC 0.00 Nucleated RBC % 0.0 D-Dimer Sodium 139 Potassium 4.8 Chloride 101 Carbon Dioxide 22 Anion Gap 16.0 H BUN 49 H Creatinine 1.9 H Estimated GFR (MDRD) 26 L Glucose 186 H Lactic Acid 2.1 Calcium 10.4 H Total Bilirubin 0.5 AST 22 ALT 23 Alkaline Phosphatase 85 Total Protein 8.2 Albumin 4.0 Globulin 4.2 Albumin/Globulin Ratio 1.0 Lipase 53 H Urine Color Urine Clarity Urine pH Ur Specific Sarah Ann Urine Protein Urine Glucose (UA) Urine Ketones Urine Occult Blood Urine Nitrite Urine Bilirubin Urine Urobilinogen Ur Leukocyte Esterase Urine RBC Urine WBC Ur Epithelial Cells Ur Squamous Epith Cells Urine Bacteria Ur Microscopic Review Urine Culture Comments 12/23/20 12/23/20 10:08 11:15 WBC RBC Hgb Hct MCV MCH MCHC RDW Plt Count MPV Neut # (Auto) Lymph # (Auto) Yolo # (Auto) Eos # (Auto) Baso # (Auto) Absolute Nucleated RBC Nucleated RBC % D-Dimer > 1050.0 H Sodium Potassium Chloride Carbon Dioxide Anion Gap BUN Creatinine Estimated GFR (MDRD) Glucose Lactic Acid Calcium Total Bilirubin AST ALT Alkaline Phosphatase Total Protein Albumin Globulin Albumin/Globulin Ratio Lipase Urine Color YELLOW Urine Clarity CLEAR Urine pH 6.5 Ur Specific Sarah Ann 1.015 Urine Protein NEGATIVE Urine Glucose (UA) NEGATIVE Urine Ketones NEGATIVE Urine Occult Blood NEGATIVE Urine Nitrite NEGATIVE Urine Bilirubin NEGATIVE Urine Urobilinogen 0.2 (NORMAL) Ur Leukocyte Esterase SMALL H Urine RBC 0-5 Urine WBC 6-10 H Ur Epithelial Cells FEW Transitional Ur Squamous Epith Cells MANY Squamous H Urine Bacteria Moderate H Ur Microscopic Review INDICATED Urine Culture Comments NOT INDICATED - Rads (name of study) CTA chest Radiology: Prelim report reviewed (Impression: 1. Extensive acute pulmonary emboli involving the bilateral upper and lower lobes as well as the right middle lobe. These extend distally from the level of the proximal segmental pulmonary artery level no evidence for acute right-sided heart strain. No acute airspace disease identifie), EMP read indepedently, See rad report chest Radiology: Prelim report reviewed (Impression: Chest without acute cardiop ulmonary abnormalities. No focal airspace disease.), EMP read indepedently, See rad report Procedures - IVC sono (time) 0940 Bedside IVC sono: IVC measures (cm) (0.75), IVC collapsed c insp (cm) (complete), Dehydration (est 2+ liter deficit) PD MEDICAL DECISION MAKING - ED course Complexity details: reviewed old records, reviewed results, re-evaluated patient, considered differential, d/w patient ED course: 75-year-old female with a history of hypertension and type 2 diabetes has developed shortness of breath and she does not have wheezing on exam she is complaining of a cough productive of yellow phlegm chest x-ray is without evidence of infiltrate. The patient does appear dyspneic even at rest and she is tachycardic. I did not find risks for the patient to have DVT. She does have clinical history and physical exam concerning for pulmonary embolism. She does not have evidence of right heart strain on bedside ultrasound and has a collapsing inferior vena cava. She does however on CT angiogram have evidence of pulmonary embolism proximally with a fair clot burden. There is no evidence of right heart strain on the CT scan. Patient is administered intravenous saline she is given a dose of Lovenox and she wants to go home. I advised against this as I found her to be quite dyspneic even at rest. She consulted with her who wanted her to be hospitalized. The patient has consented to hospitalization knowing that she is extremely short of breath if she gets up to do anything. She was road tested here in the emergency department with saturations dipping into the 80s and taking quite a bit of time to recover. Departure - Departure Disposition: ED Place in Observation Clinical Impression: Pulmonary embolism Qualifiers: Pulmonary embolism type: multiple subsegmental (without acute cor pulmonale) Qualified Code(s): I26.94 - Multiple subsegmental pulmonary emboli without acute cor pulmonale Condition: Fair
[2020-12-23 09:52] LABS: BASOPHILS # (AUTO) 0.1 10^3/uL (0.0-0.1); BASOPHILS % (AUTO) 0.6 %; EOSINOPHILS # (AUTO) 0.3 10^3/uL (0.0-0.7); EOSINOPHILS % (AUTO) 2.3 %; HCT - HEMATOCRIT 35.7 % (37.0-47.0); HGB - HEMOGLOBIN 11.4 g/dL (12.0-16.0); LYMPHOCYTES # (AUTO) 2.9 10^3/uL (1.5-3.5); LYMPHOCYTES % (AUTO) 23.5 %; MEAN CORPUSCULAR HEMOGLOBIN 26.8 pg (27.0-31.0); MEAN CORPUSCULAR HGB CONC 31.9 g/dL (32.0-36.0); MEAN PLATELET VOLUME 9.6 fL (7.9-10.8); MONOCYTES # (AUTO) 1.1 10^3/uL (0.0-1.0); MONOCYTES % (AUTO) 8.6 %; NEUTROPHILS # (AUTO) 8.1 10^3/uL (1.5-6.6); NEUTROPHILS % (AUTO) 64.8 %; PLT - PLATELET COUNT 271 10^3/uL (130-450); RED BLOOD COUNT 4.25 10^6/uL (4.20-5.40); RED CELL DISTRIBUTION WIDTH 16.5 % (12.0-15.0); WHITE BLOOD COUNT 12.5 x10^3/uL (4.8-10.8)
[2020-12-23 10:11] LABS: BILIRUBIN,TOTAL 0.5 mg/dL (0.2-1.0); CALCIUM 10.4 mg/dL (8.5-10.3); CREATININE 1.9 mg/dL (0.4-1.0); POTASSIUM 4.8 mmol/L (3.5-5.0); TOTAL PROTEIN 8.2 g/dL (6.7-8.2)
--- NOTE | 2020-12-23 10:16 | XRAY Report ---
PROCEDURE: Chest 2 View X-Ray INDICATIONS: dyspnea TECHNIQUE: 2 view(s) of the chest. COMPARISON: 11/29/2013. FINDINGS: Surgical changes and devices: None. Lungs and pleura: No pleural effusions or pneumothorax. Lungs are clear. Mediastinum: Mediastinal contours are normal. Heart size is normal. Bones and chest wall: No suspicious bony abnormalities. Soft tissues appear unremarkable. IMPRESSION: Chest without acute cardiopulmonary abnormalities. No focal airspace disease. Reviewed by: Hernan Connor MD on 12/23/2020 10:14 AM PDT Approved by: Hernan Connor MD on 12/23/2020 10:14 AM PDT Station ID: [id number]
[2020-12-23 11:25] LABS: BILIRUBIN,URINE NEGATIVE (NEGATIVE); GLUCOSE, URINE (UA) NEGATIVE (NEGATIVE); KETONES,URINE (UA) NEGATIVE (NEGATIVE); LEUKOCYTE ESTERASE, URINE SMALL (NEGATIVE); NITRITE,URINE NEGATIVE (NEGATIVE); OCCULT BLOOD,URINE NEGATIVE (NEGATIVE); PH,URINE 6.5 PH (5.0-7.5); PROTEIN,URINE NEGATIVE (NEGATIVE); UROBILINOGEN,URINE 0.2 (NORMAL) E.U./dL (NORMAL)
[2020-12-23 11:26] LABS: CLARITY,URINE CLEAR (CLEAR)
[2020-12-23 11:38] LABS: BACTERIA,URINE Moderate /HPF (None Seen); EPITHELIAL CELLS,UR FEW Transitional /HPF (<= Few); RBC,URINE 0-5 /HPF (0-5); SQUAMOUS EPITHELIAL CELL,UR MANY Squamous (<= Few)
[2020-12-23] MEDS ORDERED: IOVERSOL 320 100 ML VIAL IVP ONE ×2 (12:09→12:51)
[2020-12-23] MEDS ORDERED: ENOXAPARIN 100 MG/ML SYRINGE SUBQ STA (13:22)
--- NOTE | 2020-12-23 13:26 | CT Report ---
PROCEDURE: ANGIO CHEST W/WO INDICATIONS: soa, tachy, elevated D-dimer CONTRAST: IV CONTRAST: Optiray 320 ml: 53 PO CONTRAST: *NO PO CONTRAST TECHNIQUE: After the administration of intravenous contrast, 2 mm thick sections acquired from the pulmonary api trnug to the posterior costophrenic angles. 3-dimensional maximum intensity projection (MIP) coronal a nd sagittal reformats were then acquired through the thorax. For radiation dose reduction, the follow ing was used: automated exposure control, adjustment of mA and/or kV according to patient size. COMPARISON: Chest radiograph from earlier same day. FINDINGS: Image quality: Excellent. Pulmonary arteries: There are acute bilateral pulmonary emboli involving all segments and lobes. Embo li are visualized from a level of the proximal segmental pulmonary arteries of bilateral upper and lo wer lobes and right middle lobe. No evidence for acute right-sided heart strain. Lungs and pleura: Lungs are clear. No pleural effusions or pneumothorax. Central and peripheral ai rways are patent. Mediastinum: Heart size is normal, without pericardial effusion. Mild scattered atherosclerotic guru cifications of the coronary arteries. No mediastinal or hilar adenopathy. Thoracic aorta is normal i n caliber and enhancement. Atherosclerotic calcifications of the thoracic aorta. Esophagus is normal in caliber, without hiatal hernia. Bones and chest wall: No suspicious bony lesions. Ribs and thoracic spine appear intact throughout. Thyroid is unremarkable. No axillary or supraclavicular adenopathy. No acute compression fracture s of the thoracic spine. Abdomen: Visualized upper abdominal solid organs appear normal in the early arterial phase of enhanc ement. IMPRESSION: 1. Extensive acute pulmonary emboli involving the bilateral upper and lower lobes as well as the righ t middle lobe. These extend distally from the level of the proximal segmental pulmonary artery level. No evidence for acute right-sided heart strain. 2. No acute airspace disease identified. Findings were discussed with Dr. Hernadez at 1324hrs. Reviewed by: Hernan Connor MD on 12/23/2020 1:25 PM PDT Approved by: Hernan Connor MD on 12/23/2020 1:25 PM PDT Station ID: [id number]
[2020-12-23] MEDS ORDERED: ONDANSETRON 4 MG/2 ML VIAL IVP PRN (15:02)
[2020-12-23] MEDS ORDERED: oxyCODONE 5 MG TABLET PO PRN (15:02)
[2020-12-23] MEDS ORDERED: ONDANSETRON ODT 4 MG TABLET TL PRN (15:02)
[2020-12-23] MEDS ORDERED: ACETAMINOPHEN 325 MG TABLET PO PRN (15:02)
[2020-12-23] MEDS ORDERED: MORPHINE 2 MG/ML CARPUJECT IVP PRN (15:02)
[2020-12-23] MEDS ORDERED: SODIUM CHLORIDE FLUSH 0.9% 10 ML SYRINGE IVP PRN (15:02)
--- NOTE | 2020-12-23 15:21 | HISTORY & PHYSICAL EXAMINATION ---
Chief Complaint - Chief Complaint Chief Complaint: cough and sob History of Present Illness - Admitted From Admitted From:: home POV via ER - History Obtained [facility] History obtained from: patient and Dr. Hernadez Exam Limitations: none - History of Present Illness HPI Comment/Other: 75-year-old female who began having cough, yellow phlegm 3 days ago. She felt like she was having fevers but never took her temperature. With that has been a sensation of not being able to take a full breath. She tired, lacking energy and everything hurts. She presented to the emergency room and was seen by Dr. Hernadez. At 9:20 in the morning temperature was 37, heart rate 113, respiration 20, blood pressure 158/96. 97% saturated on room air. Over the course of her ER visit she was examined, and no clear etiology of her shortness of breath was ascertained. As such a CT pulmonary angiogram was done because the elevated D-dimer and CT angiogram shows extensive acute pulmonary emboli inv olving the bilateral upper and lower lobes as well as the right middle lobe. These extend distally from the level of the proximal segmental pulmonary artery level. No right heart strain. The patient wanted to go home. But she was convinced by ER physician that because of her tachypnea she should come in. When she gets up to walk, she desaturates into the 80s and takes a few minutes to recover her saturations. There is been no antecedent illness. There has been no unusual decreased activity. No air flights, no long distance drives. However, with Covid stay at home rules, she is definitely less active. More sedentary. She reads a lot, watches TV. She denies leg edema, leg pain. No change in bowel habits. No change in bladder habits. Covid #2 shot was 12/10/20. She is not thromboc ytopenic. She takes Estrace vaginal cream. But only does that approximately once a week. She does not take formal estrogen replacement therapy by mouth. With her presentation to the emergency room she was hemodynamically stable with a blood pressure of 158/96. Respirations were 20. She was 97% on room air. Heart rate was 113. With pulmonary embolism severity index she scored 20 points for the tachycardia. Another 20 points can be added after her evaluation, while during her stay in the ER, for 20 points. So she is considered class I, low risk with less than 66 points. A simplified pulmonary embolism severity is one- point for her pulse, 1.4 oxygen saturation. She would be considered high risk with greater than 1 point. History - Past Medical History Cardiovascular: reports: Hypertension, High cholesterol Respiratory: reports: Other (chronic cough. FEV1 2.2 L (79%). FEV1 1.65 L 75%). FEV1/FVC 74.56%. January 2014.) Neuro: reports: Peripheral neuropathy (from DM And B12 deficiency) Endocrine/Autoimmune: reports: Type 2 diabetes (since 2008, occ visits w endocrine. 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 Urinary retention. CT KUB negative. Cystoscopy done with Dr. Perez. Neg. recurrance 06/2016, 11/2018. Gets better with Cipro. Repeat cysto 07/2019 neg. ) Psych: reports: Depression (Difficulty with family, pets. Occasional no energy and will sleep or lay in bed for 12 hours a day. Treated with Wellbutrin.) Musculoskeletal: reports: Other (Dislocated finger in 2007) Derm: reports: Other (Skin cancer in 2007 and 2012) MRSA Hx?: No - Past Surgical History General: reports: Colonoscopy, Other (Iron deficiency anemia evaluated with capsule endoscopy January 2017. 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 Dad of a brain tumor at age 91, also had pancreatic ca. Siblings: 1 brother had coronary artery stents at the age of 70. 1 sister had skin cancer. Children: Both children are healthy Living arrangement: At home Living Situation: With spouse/s.o. Social History Notes: Former smoker. 2 packs a day for 25 years. Quit in 1987. Drinks occasional alcohol. A couple of times a week. . She and her live in their own home. She is from [place]. Met and her there. 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 After getting a job offer from [employer], they moved to the [place] area. 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 - Substance History Use: Uses substance without health or social issues: NONE Abuse: Recurrent use of substance despite neg consequences: NONE Dependence: Experiences withdrawal or developed tolerances: NONE - POLST Patient has POLST: No POLST Status: Full Code Meds/Allgy - Home Medications Home Medications: Ambulatory Orders Medication Instructions Recorded Confirmed Glimepiride 1 mg PO DAILY 06/01/19 Losartan [Cozaar] 100 mg PO DAILY 06/01/19 06/01/19 Omeprazole 20 mg PO DAILY 06/01/19 Atorvastatin [Lipitor] 40 mg PO DAILY 12/23/20 Levothyroxine Sodium [Euthyrox] 50 mcg PO DAILY 12/23/20 Metformin HCl [Glucophage] 2,000 mg PO DAILY 12/23/20 Rivaroxaban [Xarelto] 15 mg PO BIDWM #40 tablet 12/23/20 Triamterene/Hydrochlorothiazid 1 PO DAILY 12/23/20 [Triamterene-Hctz 37.5-25 mg Tb] - Allergies Allergies/Adverse Reactions: Allergies Allergy/AdvReac Type Severity Reaction Status Date / Time amlodipine Allergy Unknown Verified 12/23/20 09:27 Calcium Channel Blocking Allergy Unknown Verified 12/23/20 09:27 Agent Dilt guaifenesin [From Robitussin] Allergy Unknown Verified 12/23/20 09:27 Review of Systems - Constitutional Constitutional: reports: Fatigue, Malaise, Weakness - Eyes Eyes: reports: Spots in vision. denies: Pain, Irritation, Amaurosis, Blurred vision, Field loss, Vision loss - Ears, Nose & Throat Ears, Nose & Throat: reports: Nasal congestion, Postnasal drainage, Hoarseness (Chronic off and on for years). denies: Ear pain, Hearing loss, Hearing aids, Dentures, Sore throat - Cardiovascular Cariovascular: reports: Edema (when she was on amlodipine 07/2018), Lightheadedness (Occasional, intermittent, present for many years), Exertional dyspnea (Last 3 days), Decr. exercise tolerance (The last 3 days). denies: Irre gular heart rate, Palpitations, Chest pain, Syncope - Respiratory Respiratory: reports: Cough (Chronic for years. Due to reflux disease. In the last 3 days increased in frequency and severity.), Sputum production (Mild and yellow), Wheezing (In the last 3 days), SOB at rest, SOB with exertion. denies: Hemoptysis, Orthopnea - Gastrointestinal Gastrointestinal: reports: Reflux/heartburn (Sometimes makes swallowing more difficult. Unchanged for years). denies: Abdominal pain, Abdominal distention, Constipation, Diarrhea, Change in bowel habits - Genitourinary Genitourinary: reports: Urgency, Hematuria, Other (vaginal itching c/w atrophic vaginitis) - Musculoskeletal Musculoskeletal: reports: Other (Because of arthritis she has chronic joint pain, muscle cramps, stiffness) - Integumentary Integumentary: denies: Rash, Pruritis, Lesions, Dryness, Lumps, Acne, Pigment changes - Neurological Neurological: reports: Numbness (Of hands and fingers. Nerve conduction velocity testing normal January 2018.). denies: General weakness, Focal weakness, Headache, Dizziness, Memory problems Prior Level of Functionality: Prior to this event she was living a relatively quiet life at home. She still cooks, cleans, does laundry. Drives. Pays bills. Exam - Vital Signs Reviewed Vital Signs: Yes Vital Signs: Vital Signs x48h Temp Pulse Resp BP Pulse Ox 12/23/20 14:27 35.8 C L 97 22 170/97 H 97 12/23/20 14:01 96 21 148/89 H 98 12/23/20 12:30 104 H 25 H 150/77 H 96 12/23/20 11:21 88 22 155/95 H 98 12/23/20 10:22 97 23 156/88 H 98 12/23/20 09:20 37 C 113 H 20 158/96 H 97 - Physical Exam General Appearance: positive: Alert, Mild distress (Short of breath and wheezing with speaking to me). negative: Lethargic Eyes Bilateral: positive: PERRL, EOMI ENT: positive: No signs of dehydration Neck: positive: No JVD. negative: Stiff neck, Carotid bruit Respiratory: positive: Chest non-tender, Wheezes, Other (At rest, reading a book or eating dinner she is comfortable. When she finishes dinner and starts to speak to me, respiratory rate goes from 16-24 with a little bit of wheezing. Able to complete full sentences.). negative: Rales, Rhonchi Cardiovascular: positive: Regular rate & rhythm, Systolic murmur. negative: Gallop/S4, Friction rub Peripheral Pulses: positive: 1+ Abdomen: positive: Non-tender, No organomegaly, Nml bowel sounds, No distention Skin: positive: Warm, Dry, Pallor Extremities: positive: Non-tender, No pedal edema. negative: Fan's sign/cords Neurologic/Psychiatric: positive: Oriented x3, CN's nml (2-12), Motor nml Conclusion/Plan - Problem List (1) Pulmonary embolism Conclusion/Plan: This patient presents with sudden shortness of breath 3 days ago. There are no provoking factors that would give her DVTs and PEs other than a relatively sedentary lifestyle for the last few months. Differential diagnosis would be hypercoagulable state but she has not had previous problems before. I explained to her that low on my diagnosis list would be hypercoagulable state from neoplasm (especially because of her family history) but she has nothing on review of systems or previous studies that would indicate cause for concern. Plan: Xarelto is covered by her insurance plan. Observation stay to see if tachypnea and hypoxia resolved overnight. Patient is given information on pulmonary embolism and treatment I have asked her to avoid any use of nonsteroidal anti-inflammatories and list them by name. The only thing she can take for discomfort, [id number], is Tylenol. Side effects of anticoagulants discussed. Qualifiers: Pulmonary embolism type: multiple subsegmental (without acute cor pulmonale) Qualified Code(s): I26.94 - Multiple subsegmental pulmonary emboli without acute cor pulmonale (2) Acute worsening of stage 3 chronic kidney disease Conclusion/Plan: Up until 2019 her baseline creatinine was 1.0. Then she went up to 1.6 in 2019 and is hovered in that range. Today she is 1.9. Is that she is not had very much appetite in the last 3 days. Is not eating or drinking very much so I will attribute her acute worsening due to decreased p.o. intake. Even as I watched her eat dinner she ate a few bites and the rest was put aside. Plan: IV fluids x2 L already done in ER. Encourage fluid intake recheck in am avoid nephrotoxic agents (3) Controlled type 2 diabetes mellitus with complication, without long-term current use of insulin Conclusion/Plan: Complications include peripheral neuropathy. Review of her ophthalmology study showed no retinopathy. And she does have proteinuria. Plan: No Metformin while she is in the hospital. Resume glimepiride 1 mg daily Check A1c in the morning (4) HTN (hypertension) Conclusion/Plan: resume losartan Qualifiers: Hypertension type: essential hypertension Qualified Code(s): I10 - Essential (primary) hypertension (5) Hypothyroid Conclusion/Plan: check TSH in am resume synthroid Qualifiers: Hypothyroidism type: acquired Qualified Code(s): E03.9 - Hypothyroidism, unspecified - Lab Results Lab results reviewed: Yes Fish Bones: 12/23/20 09:45 12/23/20 09:45
[2020-12-23] MEDS: RIVAROXABAN 15 MG TABLET PO SCH ×2 (16:46→21:17)
[2020-12-23] MEDS: SODIUM CHLORIDE FLUSH 0.9% 10 ML SYRINGE IVP SCH (16:47)
[2020-12-24] MEDS: SODIUM CHLORIDE FLUSH 0.9% 10 ML SYRINGE IVP SCH ×2 (00:52→09:22)
[2020-12-24 04:46] LABS: BASOPHILS # (AUTO) 0.1 10^3/uL (0.0-0.1); BASOPHILS % (AUTO) 0.8 %; EOSINOPHILS # (AUTO) 0.4 10^3/uL (0.0-0.7); EOSINOPHILS % (AUTO) 3.7 %; HCT - HEMATOCRIT 32.7 % (37.0-47.0); HGB - HEMOGLOBIN 10.3 g/dL (12.0-16.0); LYMPHOCYTES # (AUTO) 2.7 10^3/uL (1.5-3.5); LYMPHOCYTES % (AUTO) 27.5 %; MEAN CORPUSCULAR HEMOGLOBIN 26.6 pg (27.0-31.0); MEAN CORPUSCULAR HGB CONC 31.5 g/dL (32.0-36.0); MEAN CORPUSCULAR VOLUME 84.5 fL (81.0-99.0); MEAN PLATELET VOLUME 10.2 fL (7.9-10.8); MONOCYTES % (AUTO) 9.8 %; NEUTROPHILS # (AUTO) 5.6 10^3/uL (1.5-6.6); NEUTROPHILS % (AUTO) 57.9 %; PLT - PLATELET COUNT 254 10^3/uL (130-450); RED BLOOD COUNT 3.87 10^6/uL (4.20-5.40); RED CELL DISTRIBUTION WIDTH 16.4 % (12.0-15.0); WHITE BLOOD COUNT 9.7 x10^3/uL (4.8-10.8)
[2020-12-24 04:56] LABS: CALCIUM 9.2 mg/dL (8.5-10.3); CREATININE 1.6 mg/dL (0.4-1.0); POTASSIUM 4.4 mmol/L (3.5-5.0)
[2020-12-24] MEDS ORDERED: LEVOTHYROXINE 25 MCG TABLET PO SCH (07:00)
[2020-12-24] MEDS ORDERED: GLIMEPIRIDE 2 MG TABLET PO SCH (08:00)
[2020-12-24] MEDS ORDERED: LOSARTAN 50 MG TABLET PO SCH (09:00)
[2020-12-24] MEDS: RIVAROXABAN 15 MG TABLET PO SCH (09:21)
--- NOTE | 2020-12-24 11:57 | PHARMACY PROGRESS NOTE ---
- Best Possible Medication History Admit Date and Time: 12/23/20 1502 Processed by: Pharmacy Medication History completed: Yes Patient Interview: Completed Secondary Source(s): Written medication list As the person ultimately responsible for medication therapy, providers are able to order a medication from an existing home medication list in [facility] via the "Reconcile Routine" prior to Confirmation of that medication by it desktop support technician. Such practice is discouraged except when the physician, in their clinical judgment, deems that a medical need exists for a medication without regard to previous use.
[2020-12-24 12:20] LABS: ESTIMATED AVERAGE GLUCOSE 151 mg/dL (70-100); HEMOGLOBIN A1c% 6.9 % (4.27-6.07)
[2020-12-24 13:55] VITALS: BP 147/85
--- NOTE | 2020-12-24 14:05 | Ultrasound Report ---
PROCEDURE: Duplex Ext Veins Bilateral INDICATIONS: Lower extremity edema TECHNIQUE: Real-time imaging, as well as color and pulse Doppler interrogation, were performed of the deep veins of both legs from the inguinal ligament to the popliteal fossa. COMPARISON: None. FINDINGS: There is echogenic partially occlusive intraluminal thrombus within the posterior tibial ve in which is noncompressible and demonstrates limited augmentation. The remainder of the right lower e xtremity veins demonstrate no findings of intraluminal thrombus. IMPRESSION: Acute partially occlusive thrombus in the right posterior tibial vein. Reviewed by: Laurent Benton MD on 12/24/2020 2:03 PM PDT Approved by: Laurent Benton MD on 12/24/2020 2:03 PM PDT Station ID: [id number]
--- NOTE | 2020-12-24 15:17 | DISCHARGE SUMMARY ---
Discharge Summary Admit Date: 12/23/20 Discharge Date: 12/24/20 Discharging Provider: Faina Hassan MD Primary Care Provider: Johnny Spear MD Code Status: Attempt Resuscitation Condition at Discharge: Fair Discharge Disposition: 01 Home, Self Care - DIAGNOSES Discharge Diagnoses with Status of Each Condition: 1. Pulmonary embolism 2. Acute worsening of stage III chronic kidney disease. With hydration and taking way her Metformin creatinine came down to 1.6. Baseline for her up till 2019 was 1.0. 3. Controlled type 2 diabetes mellitus with complication, without long-term use of insulin. She has peripheral neuropathy. 4. Hypertension 5. Hypothyroidism - HPI History of Present Illness: 75-year-old female who began having cough, yellow phlegm 3 days ago. She felt like she was having fevers but never took her temperature. With that has been a sensation of not being able to take a full breath. She tired, lacking energy and everything hurts. She presented to the emergency room and was seen by Dr. Hernadez. At 9:20 in the morning temperature was 37, heart rate 113, respiration 20, blood pressure 158/96. 97% saturated on room air. Over the course of her ER visit she was examined, and no clear etiology of her shortness of breath was ascertained. As such a CT pulmonary angiogram was done because the elevated D-dimer and CT angiogram shows extensive acute pulmonary emboli involving the bilateral upper and lower lobes as well as the right middle lobe. These extend distally from the level of the proximal segmental pulmonary artery level. No right heart strain. The patient wanted to go home. But she was convinced by ER physician that because of her tachypnea she should come in. Wh en she gets up to walk, she desaturates into the 80s and takes a few minutes to recover her saturations. There is been no antecedent illness. There has been no unusual decreased activity. No air flights, no long distance drives. However, with Covid stay at home rules, she is definitely less active. More sedentary. She reads a lot, watches TV. She denies leg edema, leg pain. No change in bowel habits. No change in bladder habits. Covid #2 shot was 12/10/20. She is not thrombocytopenic. She takes Estrace vaginal cream. But only does that approximately once a week. She does not take formal estrogen replacement therapy by mouth. With her presentation to the emergency room she was hemodynamically stable with a blood pressure of 158/96. Respirations were 20. She was 97% on room air. Heart rate was 113. With pulmonary embolism severity index she scored 20 points for the tachycardia. Another 20 points can be added after her evaluation, while during her stay in the ER, for 20 points. So she is considered class I, low risk with less than 66 points. A simplified pulmonary embolism severity is one- point for her pulse, 1.4 oxygen saturation. She would be considered high risk w ith greater than 1 point. - Past Medical History Cardiovascular: reports: Hypertension, High cholesterol Respiratory: reports: Other (chronic cough. FEV1 2.2 L (79%). FEV1 1.65 L 75%). FEV1/FVC 74.56%. January 2014.) Neuro: reports: Peripheral neuropathy (from DM And B12 deficiency) Endocrine/Autoimmune: reports: Type 2 diabetes (since 2008, occ visits w endocrine. 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 Urinary retention. CT KUB negative. Cystoscopy done with Dr. Perez. Neg. recurrance 06/2016, 11/2018. Gets better with Cipro. Repeat cysto 07/2019 neg. ) Psych: reports: Depression (Difficulty with family, pets. Occasional no energy and will sleep or lay in bed for 12 hours a day. Treated with Wellbutrin.) Musculoskeletal: reports: Other (Dislocated finger in 2007) Derm: reports: Other (Skin cancer in 2007 and 2012) MRSA Hx?: No - Past Surgical History General: reports: Colonoscopy, Other (Iron deficiency anemia evaluated with capsule endoscopy January 2017. 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 Chest x-ray without acute cardiopulmonary abnormalities. No focal airspace disease. 2. Chest/thorax CT angiogram with acute bilateral pulmonary emboli involving all segments and lobes. Emboli are visualized from the level of the proximal segmental pulmonary arteries of bilateral upper and lower lobes and right middle lobe. No evidence for acute right-sided heart strain. 3. Venous duplex study of the leg shows acute partially occlusive thrombus in the right posterior tibial vein. Left leg was uninvolved. - HOSPITAL COURSE Hospital Course: Patient was initially given Lovenox in the emergency room. She was then started on Xarelto. I confirmed via her health insurance plan in [facility] that they do cover this and this is a preferred brand. As such she started on Xarelto 15 mg p.o. twice daily for 21 days and to continue that with Xarelto 20 mg once a day for the next few months. On presentation she had dyspnea on exertion that occurred even with just bed rest and talking. By the end of her stay she was getting up out of bed, walking in her room, going to the bathroom with less and less dyspnea on exertion. Her initial tachycardia of 114 gradually went away and her heart rate was 84. At discharge blood pressure was 147/85 with respirations 18 and 94% on room air. She is a 5 foot 3 inch morbidly obese female who is 96.5 kg. Neck is supple. Lungs are clear to auscultation and percussion without tachypnea or use of accessory muscles. She has a regular rate and rhythm with no right ventricular lift. The abdomen is hugely obese, soft, nontender. Normal bowel sounds. Extremities are remarkable in that they are normal. She has [place] no pedal edema, no evidence of venous stasis. She is Homans negative. There is no redness or heat to either extremity. She asked about compression stockings. She should wear low compression stockings starting in a month. I have asked her to see her primary care provider in the next 2 weeks. I would also like her primary care provider to refer her to hematology for an opinion. She has been instructed on avoiding nonsteroidals and only use Tylenol for pain, fever, headache. To avoid ladders. No other restrictions on activities of daily living that are considered "normal". - ALLERGIES Allergies/Adverse Reactions: Allergies Allergy/AdvReac Type Severity Reaction Status Date / Time amlodipine Allergy Unknown Verified 12/23/20 09:27 Calcium Channel Blocking Allergy Unknown Verified 12/23/20 09:27 Agent Dilt guaifenesin [From Robitussin] Allergy Unknown Verified 12/23/20 09:27 - MEDICATIONS Home Medications: Ambulatory Orders Medication Instructions Recorded Confirmed Glimepiride 1 mg PO DAILY 06/01/19 12/24/20 Losartan [Cozaar] 100 mg PO DAILY 06/01/19 12/24/20 Omeprazole 20 mg PO DAILY 06/01/19 12/24/20 Atorvastatin [Lipitor] 40 mg PO QPM 12/23/20 12/24/20 Bifidobacterium Infantis [Align] 10.5 mg PO DAILY 12/23/20 12/24/20 Cholecalciferol (Vitamin D3) 25 mcg PO DAILY 12/23/20 12/24/20 [Vitamin D3] Cyanocobalamin (Vitamin B-12) 2,500 mcg PO OAW 12/23/20 12/23/20 [Vitamin B-12] Levothyroxine Sodium [Euthyrox] 50 mcg PO DAILY 12/23/20 12/24/20 Metformin HCl [Glucophage] 1,000 mg PO BID 12/23/20 12/24/20 Rivaroxaban [Xarelto] 15 mg PO BIDWM #40 tablet 12/23/20 Triamterene/Hydrochlorothiazid 1 tab PO DAILY 12/23/20 12/24/20 [Triamterene-Hctz 37.5-25 mg Tb] Fluticasone [Flonase] 1 spray ANAMARIA HS 12/24/20 12/24/20 Multivitamin W/Minerals [Theragran 1 tab PO DAILY 12/24/20 12/24/20 M] Rivaroxaban [Xarelto] 20 mg PO DAILY #30 tablet 12/24/20 Wheat Dextrin [Benefiber] 2 tsp PO TID 12/24/20 12/24/20 estradioL vaginal [Estrace vaginal] 1 gm VG UD 12/24/20 12/24/20 - LABS Result Diagrams: 12/24/20 04:12 12/24/20 04:12
--- NOTE | 2020-12-24 15:21 | Discharge Plan ---
Discharge Plan Problem Reviewed?: Yes Disposition: Home, Self Care Condition: Fair Prescriptions: Rivaroxaban [Xarelto] 15 mg PO BIDWM #40 tablet Rivaroxaban [Xarelto] 20 mg PO DAILY #30 tablet Diet: Diabetic Activity Restrictions: Activity as Tolerated Shower Restrictions: No Driving Restrictions: No Health Concerns: To the emergency room with sudden onset of shortness of breath for 3 days. While you do have a chronic cough, and mild wheezing at times from your previous pulmonary function studies, your shortness of breath with exertion is not severe. This was so severe that it was so difficult for you to get up to get dressed much less to get up and walk across the room to the bathroom. When you came to the emergency room we evaluated you for heart attack, arrhythmia, congestive heart failure, and pneumonia but those were not present. A CAT scan of your lung with dye studies through the arteries of your lung found you to have multiple small pulmonary emboli. I then did ultrasounds of your legs looking for the blood clots and it appears that your left leg is the source of the clots up into your lungs. You have been started on a blood thinner called Xarelto. The only other problems we found while evaluating you is mild dehydration. Normal kidney function for you is 1.0 creatinine. Starting in September 2018 your creatinine went to 1.6 indicating mild kidney failure. When you came to the hospital on December 23, 2020 your creatinine was 1.9. It is now back down to 1.6. However please make sure that you are drinking enough water. That your sugar stays under control. Your A1c is 6.9%. Your average glucose is 151. Plan of Treatment: 1. Stay physically active. We think that prolonged sitting and diminished activity over the last few months is what led to the risk of a blood clot in your left leg. As such make sure you do stretching exercises for your ankles and calves. That you get up and walk around the house at least every 2 hours. There is no activity that needs to be restricted. Normal activities of daily living such as bathing, walking, cleaning house, yard work, driving, do not need to be affected. However I would really prefer it if you do not do things like deep sea diving, jumping out of a plane with a parachute, or skiing. Avoid climbing up on ladders. 2. Other causes of blood clots in the legs are people who take hormones. People who take hormones and smoke. People who travel a lot over long distances. People who are obese. There are certain medications that can cause blood clots. You are not on them. You even wondered if your Covid vaccine did this. None of these were the cause of your blood clots. There is cause that is difficult to evaluate. Sometimes early developing cancer in someone's body can cause the blood to be thicker and lead to blood clots. In your case, a CAT scan of your abdomen in the past has been negative. CT of your chest shows no tumors. However you have a strong family history of cancer and that your mom had uterine cancer, your dad had pancreatic cancer, and your brother had non- Hodgkin's lymphoma. Make sure that you and your primary care provider are vigilant about any changes in your body. 3. See your primary care provider, Dr. Spear, in the next 2 weeks. I would like him to refer you to see a lead refinery supervisor. The lead refinery supervisor does not need to see you quickly. It could be in the next 2 months. I want the lead refinery supervisor to give us an opinion about your risk of recurrence of blood clots. 4. The blood thinner you have been started on his Xarelto 15 mg twice a day. You will do that for 21 days. After that you will be on Xarelto 20 mg, once a day for up to [address] Spear and the lead refinery supervisor will decide when you come off the Xarelto. 5. While on Xarelto you cannot take aspirin, Aleve, ibuprofen, Naprosyn or any anti-inflammatory pain reliever. Xarelto is a blood thinner and so are those medicines. I do not want you taking 2 blood thinners at the same time. You can take Tylenol [id number] for fever, pain, headache. Care Goals: To recover from shortness of breath so that you are back to baseline. And to not have recurrence of the blood clots. Assessment: I have reiterated the care goals and follow-up plans verbally and in writing. Patient promises to follow through. No Smoking: If you smoke, Please STOP! Call for help. Follow-up with: Johnny Spear MD [Primary Care Provider] -
== END 2020-12-24 16:08 | disposition home or self-care (01) ==
LOC: ED 09:11 → MS3 15:02
PROVIDERS: ADMIT Specialist; ATTEND Specialist
DX: I26.94 Multiple subsegmental thrombotic pulmonary emboli without acute cor pulmonale (principal); I82.441 Acute embolism and thrombosis of right tibial vein; E11.22 Type 2 diabetes mellitus with diabetic chronic kidney disease; I12.9 Hypertensive chronic kidney disease with stage 1 through stage 4 chronic kidney disease, or unspecified chronic kidney disease; N18.30 Chronic kidney disease, stage 3 unspecified; E03.9 Hypothyroidism, unspecified; Z79.84 Long term (current) use of oral hypoglycemic drugs; Z20.822 Contact with and (suspected) exposure to COVID-19; R00.0 Tachycardia, unspecified; E11.42 Type 2 diabetes mellitus with diabetic polyneuropathy; F32.9 Major depressive disorder, single episode, unspecified; Z87.891 Personal history of nicotine dependence; E66.01 Morbid (severe) obesity due to excess calories
CPT/HCPCS: 36415; 71046; 71275; 80048; 80053; 81001; 83036; 83605; 83690; 84443; 84484; 85025; 85379; 87040; 93005; 93970; 96372; 99284; 99285; A9270; G0378; J1650; Q9967; U0004; 81003; 87086

== ENCOUNTER 2021-01-12 10:12 | Outpatient (CLI) | payer MEDICARE, OTHER ==
--- NOTE | 2021-01-13 09:59 | Mammography Report ---
BILATERAL DIGITAL SCREENING MAMMOGRAM 3D/2D: 01/12/2021 CLINICAL: Family history of breast cancer. Comparison is made to exams dated: 08/13/2019 mammogram, 06/13/2018 mammogram, 02/09/2017 mammogram, a nd 01/21/2016 mammogram - [facility]. The tissue of both breasts is heterogeneously dense. This may lower the sensitivity of mammography. No significant masses, calcifications, or other findings are seen in either breast. There has been no significant interval change. IMPRESSION: NEGATIVE There is no mammographic evidence of malignancy. A 1 year screening mammogram is recommended. This exam was interpreted at Station ID: [id number]. NOTE: For mammograms, a report in lay terms will be sent to the patient. Approximately 15% of breast malignancies will not be visualized mammographically. In the management of a palpable breast mass, a negative mammogram must not discourage biopsy of a clinically suspicious lesion. Electronically Signed By: Giacomo Pettit M.D. [facility] [place]:01/12/2021 11:36:30 ACR BI-RADS Category 1: Negative 3341F PARENCHYMAL PATTERN: (D) - The breast(s) demonstrate(s) heterogeneously dense fibroglandular [place]. BI-RADS CATEGORY: (1) - 1 RECOMMENDATION: (ANNUAL) - Recommend routine annual screening mammography. [id number] 1 year screening LATERALITY: (B)
== END 2021-01-12 10:13 | disposition home or self-care (01) ==
LOC: DI.S 10:12
DX: Z12.31 Encounter for screening mammogram for malignant neoplasm of breast (principal); Z80.3 Family history of malignant neoplasm of breast

== ENCOUNTER 2021-01-21 07:08 | Outpatient (CLI) | payer MEDICARE, OTHER ==
[2021-01-21 14:47] LABS: BASOPHILS # (AUTO) 0.1 10^3/uL (0.0-0.1); EOSINOPHILS # (AUTO) 0.3 10^3/uL (0.0-0.7); HCT - HEMATOCRIT 32.7 % (37.0-47.0); LYMPHOCYTES # (AUTO) 1.9 10^3/uL (1.5-3.5); LYMPHOCYTES % (AUTO) 27.6 %; MEAN CORPUSCULAR HEMOGLOBIN 26.6 pg (27.0-31.0); MEAN CORPUSCULAR HGB CONC 30.6 g/dL (32.0-36.0); MEAN PLATELET VOLUME 10.5 fL (7.9-10.8); MONOCYTES # (AUTO) 0.9 10^3/uL (0.0-1.0); MONOCYTES % (AUTO) 12.3 %; NEUTROPHILS # (AUTO) 3.9 10^3/uL (1.5-6.6); PLT - PLATELET COUNT 318 10^3/uL (130-450); RED BLOOD COUNT 3.76 10^6/uL (4.20-5.40); RED CELL DISTRIBUTION WIDTH 16.1 % (12.0-15.0)
[2021-01-21 15:03] LABS: ALBUMIN 3.9 g/dL (3.2-5.5); ALBUMIN/GLOBULIN RATIO 1.2 (1.0-2.2); BILIRUBIN,TOTAL 0.4 mg/dL (0.2-1.0); CALCIUM 9.4 mg/dL (8.5-10.3); CREATININE 1.8 mg/dL (0.4-1.0); POTASSIUM 4.8 mmol/L (3.5-5.0); TOTAL PROTEIN 7.2 g/dL (6.7-8.2)
[2021-01-21 15:26] LABS: CREATININE,URINE 65.9 mg/dL; MICROALBUM/CREATININE RATIO,UR 31.9 ug/mg (<30.0); MICROALBUMIN,URINE 2.1 mg/dL (0-300.0)
[2021-01-21 20:19] LABS: ESTIMATED AVERAGE GLUCOSE 143 mg/dL (70-100); HEMOGLOBIN A1c% 6.6 % (4.27-6.07)
== END 2021-01-21 07:09 | disposition home or self-care (01) ==
LOC: LAB.S 07:08
PROVIDERS: ATTEND Internal Medicine
DX: I10 Essential (primary) hypertension (principal); E11.42 Type 2 diabetes mellitus with diabetic polyneuropathy
CPT/HCPCS: 36415; 80053; 82043; 82570; 83036; 85025

== ENCOUNTER 2021-03-31 08:00 | Outpatient (CLI) | payer MEDICARE, OTHER | END 2021-03-31 23:59 | disposition home or self-care (01) | LOC: LAB.S 08:00 | PROVIDERS: ATTEND Physician Assistant | DX: N30.00 Acute cystitis without hematuria (principal) | CPT/HCPCS: 87086; 87181 ==

== ENCOUNTER 2021-04-21 07:53 | Outpatient (CLI) | payer MEDICARE, OTHER ==
[2021-04-21 14:54] LABS: BASOPHILS # (AUTO) 0.1 10^3/uL (0.0-0.1); BASOPHILS % (AUTO) 0.9 %; EOSINOPHILS # (AUTO) 0.3 10^3/uL (0.0-0.7); EOSINOPHILS % (AUTO) 3.3 %; HCT - HEMATOCRIT 31.2 % (37.0-47.0); HGB - HEMOGLOBIN 9.8 g/dL (12.0-16.0); LYMPHOCYTES # (AUTO) 2.3 10^3/uL (1.5-3.5); LYMPHOCYTES % (AUTO) 30.3 %; MEAN CORPUSCULAR HEMOGLOBIN 26.7 pg (27.0-31.0); MEAN CORPUSCULAR HGB CONC 31.4 g/dL (32.0-36.0); MEAN PLATELET VOLUME 10.6 fL (7.9-10.8); MONOCYTES # (AUTO) 0.9 10^3/uL (0.0-1.0); MONOCYTES % (AUTO) 11.9 %; NEUTROPHILS % (AUTO) 53.3 %; PLT - PLATELET COUNT 337 10^3/uL (130-450); RED BLOOD COUNT 3.67 10^6/uL (4.20-5.40); RED CELL DISTRIBUTION WIDTH 15.6 % (12.0-15.0); WHITE BLOOD COUNT 7.6 x10^3/uL (4.8-10.8)
[2021-04-21 14:58] LABS: ALBUMIN 3.5 g/dL (3.2-5.5); BILIRUBIN,TOTAL 0.5 mg/dL (0.2-1.0); CALCIUM 9.2 mg/dL (8.5-10.3); CREATININE 1.6 mg/dL (0.4-1.0); POTASSIUM 4.6 mmol/L (3.5-5.0)
[2021-04-21 20:33] LABS: ESTIMATED AVERAGE GLUCOSE 154 mg/dL (70-100)
== END 2021-04-21 07:54 | disposition home or self-care (01) ==
LOC: LAB.S 07:53
PROVIDERS: ATTEND Internal Medicine
DX: I10 Essential (primary) hypertension (principal); R79.89 Other specified abnormal findings of blood chemistry; E11.42 Type 2 diabetes mellitus with diabetic polyneuropathy
CPT/HCPCS: 36415; 80053; 83036; 85025

== ENCOUNTER 2021-04-28 12:30 | Outpatient (CLI) | payer MEDICARE, OTHER ==
[2021-04-28 15:31] LABS: BILIRUBIN,URINE NEGATIVE (NEGATIVE); GLUCOSE, URINE (UA) NEGATIVE (NEGATIVE); KETONES,URINE (UA) NEGATIVE (NEGATIVE); LEUKOCYTE ESTERASE, URINE NEGATIVE (NEGATIVE); NITRITE,URINE NEGATIVE (NEGATIVE); OCCULT BLOOD,URINE NEGATIVE (NEGATIVE); PROTEIN,URINE NEGATIVE (NEGATIVE); UROBILINOGEN,URINE 0.2 (NORMAL) E.U./dL (NORMAL)
[2021-04-28 15:47] LABS: BACTERIA,URINE Rare /HPF (None Seen); CLARITY,URINE CLEAR (CLEAR); RBC,URINE None Seen /HPF (0-5); SQUAMOUS EPITHELIAL CELL,UR FEW Squamous (<= Few); WBC,URINE 0-3 /HPF (0-5)
== END 2021-04-28 12:31 | disposition home or self-care (01) ==
LOC: LAB.S 12:30
PROVIDERS: ATTEND Internal Medicine
DX: R30.0 Dysuria (principal)
CPT/HCPCS: 81001; 87086

== ENCOUNTER 2021-05-04 07:00 | Outpatient (CLI) | payer MEDICARE, OTHER ==
[2021-05-04 16:29] LABS: FECAL OCCULT BLOOD (FIT) NEGATIVE (NEGATIVE)
== END 2021-05-04 23:59 | disposition home or self-care (01) ==
LOC: LAB.R 07:00
PROVIDERS: ATTEND Internal Medicine
DX: Z12.11 Encounter for screening for malignant neoplasm of colon (principal)
CPT/HCPCS: 82274

== ENCOUNTER 2021-06-05 14:26 | Outpatient (CLI) | payer MEDICARE, OTHER ==
[2021-06-05 20:17] LABS: ALBUMIN 3.8 g/dL (3.2-5.5); CALCIUM 8.9 mg/dL (8.5-10.3); CREATININE 1.7 mg/dL (0.4-1.0); PHOSPHORUS 3.4 mg/dL (2.5-4.6); POTASSIUM 4.5 mmol/L (3.5-5.0)
== END 2021-06-05 14:27 | disposition home or self-care (01) ==
LOC: LAB.S 14:26
PROVIDERS: ATTEND Physician Assistant
DX: N18.32 Chronic kidney disease, stage 3b (principal); Z87.440 Personal history of urinary (tract) infections
CPT/HCPCS: 36415; 80069

== ENCOUNTER 2021-07-29 07:40 | Outpatient (CLI) | payer MEDICARE, OTHER ==
[2021-07-29 14:38] LABS: BASOPHILS # (AUTO) 0.1 10^3/uL (0.0-0.1); BASOPHILS % (AUTO) 0.9 %; EOSINOPHILS # (AUTO) 0.3 10^3/uL (0.0-0.7); EOSINOPHILS % (AUTO) 3.2 %; HCT - HEMATOCRIT 32.7 % (37.0-47.0); HGB - HEMOGLOBIN 10.1 g/dL (12.0-16.0); LYMPHOCYTES # (AUTO) 2.3 10^3/uL (1.5-3.5); LYMPHOCYTES % (AUTO) 27.4 %; MEAN CORPUSCULAR HGB CONC 30.9 g/dL (32.0-36.0); MEAN CORPUSCULAR VOLUME 84.1 fL (81.0-99.0); MEAN PLATELET VOLUME 11.2 fL (7.9-10.8); MONOCYTES % (AUTO) 11.6 %; NEUTROPHILS # (AUTO) 4.8 10^3/uL (1.5-6.6); NEUTROPHILS % (AUTO) 56.8 %; PLT - PLATELET COUNT 344 10^3/uL (130-450); RED BLOOD COUNT 3.89 10^6/uL (4.20-5.40); RED CELL DISTRIBUTION WIDTH 17.2 % (12.0-15.0); WHITE BLOOD COUNT 8.4 x10^3/uL (4.8-10.8)
[2021-07-29 15:07] LABS: BILIRUBIN,URINE NEGATIVE (NEGATIVE); GLUCOSE, URINE (UA) NEGATIVE (NEGATIVE); KETONES,URINE (UA) NEGATIVE (NEGATIVE); LEUKOCYTE ESTERASE, URINE SMALL (NEGATIVE); NITRITE,URINE NEGATIVE (NEGATIVE); OCCULT BLOOD,URINE NEGATIVE (NEGATIVE); PROTEIN,URINE NEGATIVE (NEGATIVE); UROBILINOGEN,URINE 0.2 (NORMAL) E.U./dL (NORMAL)
[2021-07-29 15:11] LABS: CLARITY,URINE HAZY (CLEAR)
[2021-07-29 15:53] LABS: BACTERIA,URINE Rare /HPF (None Seen); RBC,URINE None Seen /HPF (0-5); SQUAMOUS EPITHELIAL CELL,UR FEW Squamous (<= Few); WBC,URINE 0-3 /HPF (0-5)
[2021-07-29 16:04] LABS: ALBUMIN 3.9 g/dL (3.2-5.5); ALBUMIN/GLOBULIN RATIO 1.1 (1.0-2.2); BILIRUBIN,TOTAL 0.8 mg/dL (0.2-1.0); CALCIUM 9.2 mg/dL (8.5-10.3); CREATININE 1.5 mg/dL (0.4-1.0); POTASSIUM 4.6 mmol/L (3.5-5.0); TOTAL PROTEIN 7.5 g/dL (6.7-8.2)
[2021-07-29 16:07] LABS: THYROID STIMULATING HORMONE 2.49 uIU/mL (0.34-5.60)
[2021-07-29 20:20] LABS: ESTIMATED AVERAGE GLUCOSE 157 mg/dL (70-100); HEMOGLOBIN A1c% 7.1 % (4.27-6.07)
== END 2021-07-29 07:41 | disposition home or self-care (01) ==
LOC: LAB.S 07:40
PROVIDERS: ATTEND Internal Medicine
DX: I10 Essential (primary) hypertension (principal); R30.0 Dysuria; D64.9 Anemia, unspecified; E11.42 Type 2 diabetes mellitus with diabetic polyneuropathy; E03.9 Hypothyroidism, unspecified; Z12.11 Encounter for screening for malignant neoplasm of colon
CPT/HCPCS: 36415; 80053; 81001; 82607; 83036; 83540; 84443; 84466; 85025; 87086

== ENCOUNTER 2021-07-30 08:00 | Outpatient (CLI) | payer MEDICARE, OTHER ==
[2021-07-30 16:10] LABS: FECAL OCCULT BLOOD (FIT) NEGATIVE (NEGATIVE)
== END 2021-07-30 23:59 | disposition home or self-care (01) ==
LOC: LAB.S 08:00
PROVIDERS: ATTEND Internal Medicine
DX: Z12.11 Encounter for screening for malignant neoplasm of colon (principal)
CPT/HCPCS: 82274

== ENCOUNTER 2021-08-04 08:00 | Outpatient (CLI) | payer MEDICARE, OTHER ==
[2021-08-04 15:34] LABS: BILIRUBIN,URINE NEGATIVE (NEGATIVE); GLUCOSE, URINE (UA) NEGATIVE (NEGATIVE); KETONES,URINE (UA) NEGATIVE (NEGATIVE); LEUKOCYTE ESTERASE, URINE TRACE (NEGATIVE); NITRITE,URINE NEGATIVE (NEGATIVE); OCCULT BLOOD,URINE NEGATIVE (NEGATIVE); PH,URINE 5.5 PH (5.0-7.5); PROTEIN,URINE NEGATIVE (NEGATIVE); UROBILINOGEN,URINE 0.2 (NORMAL) E.U./dL (NORMAL)
[2021-08-04 15:37] LABS: CLARITY,URINE CLEAR (CLEAR)
[2021-08-04 15:53] LABS: BACTERIA,URINE Rare /HPF (None Seen); RBC,URINE 0-5 /HPF (0-5); SQUAMOUS EPITHELIAL CELL,UR FEW Squamous (<= Few)
== END 2021-08-04 09:09 ==
LOC: LAB 08:00
PROVIDERS: ATTEND Internal Medicine
DX: R30.0 Dysuria (principal)
CPT/HCPCS: 81001; 87086

== ENCOUNTER 2021-08-26 14:33 | Outpatient (CLI) | payer MEDICARE, OTHER ==
[2021-08-26 20:06] LABS: BASOPHILS # (AUTO) 0.1 10^3/uL (0.0-0.1); BASOPHILS % (AUTO) 0.8 %; EOSINOPHILS # (AUTO) 0.3 10^3/uL (0.0-0.7); EOSINOPHILS % (AUTO) 3.6 %; HGB - HEMOGLOBIN 10.4 g/dL (12.0-16.0); LYMPHOCYTES # (AUTO) 2.7 10^3/uL (1.5-3.5); LYMPHOCYTES % (AUTO) 29.3 %; MEAN CORPUSCULAR HEMOGLOBIN 26.4 pg (27.0-31.0); MEAN CORPUSCULAR HGB CONC 31.5 g/dL (32.0-36.0); MEAN CORPUSCULAR VOLUME 83.8 fL (81.0-99.0); MEAN PLATELET VOLUME 11.3 fL (7.9-10.8); MONOCYTES # (AUTO) 0.9 10^3/uL (0.0-1.0); MONOCYTES % (AUTO) 9.7 %; NEUTROPHILS # (AUTO) 5.3 10^3/uL (1.5-6.6); NEUTROPHILS % (AUTO) 56.5 %; PLT - PLATELET COUNT 341 10^3/uL (130-450); RED BLOOD COUNT 3.94 10^6/uL (4.20-5.40); RED CELL DISTRIBUTION WIDTH 17.4 % (12.0-15.0); WHITE BLOOD COUNT 9.3 x10^3/uL (4.8-10.8)
[2021-08-26 20:28] LABS: ALBUMIN 3.8 g/dL (3.2-5.5); BILIRUBIN,DIRECT 0.1 mg/dL (0.1-0.5); BILIRUBIN,TOTAL 0.6 mg/dL (0.2-1.0); CALCIUM 9.2 mg/dL (8.5-10.3); CREATININE 1.6 mg/dL (0.4-1.0); MAGNESIUM 1.6 mg/dL (1.7-2.8); MICROALBUM/CREATININE RATIO,UR 62.3 ug/mg (<30.0); MICROALBUMIN,URINE 4.3 mg/dL (0-300.0); PHOSPHORUS 3.3 mg/dL (2.5-4.6); POTASSIUM 3.8 mmol/L (3.5-5.0); TOTAL PROTEIN 7.6 g/dL (6.7-8.2); URIC ACID 5.4 mg/dL (2.6-7.2)
[2021-08-28 10:06] LABS: HEPATITIS C ANTIBODY NON-REACTIVE (NON-REACTIVE)
[2021-08-29 15:37] LABS: ALBUMIN 3.7 g/dL (3.8-4.8); ALPHA 1 GLOBULIN 0.3 g/dL (0.2-0.3); BETA 1 GLOBULIN 0.5 g/dL (0.4-0.6); BETA 2 GLOBULIN 0.4 g/dL (0.2-0.5); GAMMA GLOBULIN 1.1 g/dL (0.8-1.7)
== END 2021-08-26 14:34 | disposition home or self-care (01) ==
LOC: LAB.S 14:33
PROVIDERS: ATTEND Internal Medicine Nephrology
DX: E11.22 Type 2 diabetes mellitus with diabetic chronic kidney disease (principal); N18.32 Chronic kidney disease, stage 3b
CPT/HCPCS: 36415; 80048; 80076; 81599; 82043; 82306; 82310; 82570; 82610; 83735; 83970; 84100; 84155; 84165; 84550; 85025; 86335; 86803

== ENCOUNTER 2021-10-29 07:49 | Outpatient (CLI) | payer MEDICARE, OTHER ==
[2021-10-29 15:14] LABS: BASOPHILS # (AUTO) 0.1 10^3/uL (0.0-0.1); EOSINOPHILS # (AUTO) 0.3 10^3/uL (0.0-0.7); EOSINOPHILS % (AUTO) 3.2 %; HGB - HEMOGLOBIN 11.6 g/dL (12.0-16.0); LYMPHOCYTES # (AUTO) 2.5 10^3/uL (1.5-3.5); MEAN CORPUSCULAR HGB CONC 31.4 g/dL (32.0-36.0); MEAN CORPUSCULAR VOLUME 86.2 fL (81.0-99.0); MEAN PLATELET VOLUME 10.9 fL (7.9-10.8); MONOCYTES # (AUTO) 0.9 10^3/uL (0.0-1.0); MONOCYTES % (AUTO) 12.2 %; NEUTROPHILS % (AUTO) 51.3 %; PLT - PLATELET COUNT 319 10^3/uL (130-450); RED BLOOD COUNT 4.29 10^6/uL (4.20-5.40); RED CELL DISTRIBUTION WIDTH 16.5 % (12.0-15.0); WHITE BLOOD COUNT 7.7 x10^3/uL (4.8-10.8)
[2021-10-29 15:25] LABS: ALBUMIN 3.8 g/dL (3.2-5.5); ALBUMIN/GLOBULIN RATIO 1.1 (1.0-2.2); BILIRUBIN,TOTAL 1.1 mg/dL (0.2-1.0); CALCIUM 9.2 mg/dL (8.5-10.3); CREATININE 2.1 mg/dL (0.4-1.0); TOTAL PROTEIN 7.4 g/dL (6.7-8.2)
[2021-10-29 20:07] LABS: ESTIMATED AVERAGE GLUCOSE 214 mg/dL (70-100); HEMOGLOBIN A1c% 9.1 % (4.27-6.07)
== END 2021-10-29 07:50 | disposition home or self-care (01) ==
LOC: LAB.S 07:49
PROVIDERS: ATTEND Internal Medicine
DX: I10 Essential (primary) hypertension (principal); E11.42 Type 2 diabetes mellitus with diabetic polyneuropathy
CPT/HCPCS: 36415; 80053; 83036; 85025

== ENCOUNTER 2021-11-13 07:32 | Outpatient (CLI) | payer MEDICARE, OTHER ==
[2021-11-13 15:27] LABS: HCT - HEMATOCRIT 37.2 % (37.0-47.0); HGB - HEMOGLOBIN 11.4 g/dL (12.0-16.0); MEAN CORPUSCULAR HEMOGLOBIN 26.9 pg (27.0-31.0); MEAN CORPUSCULAR HGB CONC 30.6 g/dL (32.0-36.0); MEAN CORPUSCULAR VOLUME 87.7 fL (81.0-99.0); RED BLOOD COUNT 4.24 10^6/uL (4.20-5.40); RED CELL DISTRIBUTION WIDTH 15.9 % (12.0-15.0); WHITE BLOOD COUNT 7.8 x10^3/uL (4.8-10.8)
[2021-11-13 16:14] LABS: ALBUMIN 3.7 g/dL (3.2-5.5); ALBUMIN/GLOBULIN RATIO 1.1 (1.0-2.2); BILIRUBIN,TOTAL 0.9 mg/dL (0.2-1.0); CALCIUM 9.3 mg/dL (8.5-10.3); CREATININE 1.7 mg/dL (0.4-1.0); CREATININE,URINE 71.4 mg/dL; MICROALBUM/CREATININE RATIO,UR 39.2 ug/mg (<30.0); MICROALBUMIN,URINE 2.8 mg/dL (0-300.0); POTASSIUM 4.5 mmol/L (3.5-5.0); TOTAL PROTEIN 7.1 g/dL (6.7-8.2)
== END 2021-11-13 07:33 | disposition home or self-care (01) ==
LOC: LAB.S 07:32
PROVIDERS: ATTEND Internal Medicine Nephrology
DX: N18.32 Chronic kidney disease, stage 3b (principal)
CPT/HCPCS: 36415; 80053; 82043; 82306; 82570; 83970; 85027

== ENCOUNTER 2021-12-11 08:00 | Outpatient (CLI) | payer MEDICARE, OTHER ==
[2021-12-11 15:48] LABS: BILIRUBIN,URINE NEGATIVE (NEGATIVE); GLUCOSE, URINE (UA) >=1000 mg/dL (NEGATIVE); KETONES,URINE (UA) NEGATIVE (NEGATIVE); LEUKOCYTE ESTERASE, URINE NEGATIVE (NEGATIVE); NITRITE,URINE NEGATIVE (NEGATIVE); OCCULT BLOOD,URINE NEGATIVE (NEGATIVE); PROTEIN,URINE NEGATIVE (NEGATIVE); UROBILINOGEN,URINE 0.2 (NORMAL) E.U./dL (NORMAL)
[2021-12-11 16:44] LABS: CLARITY,URINE CLEAR (CLEAR)
== END 2021-12-11 08:01 | disposition home or self-care (01) ==
LOC: LAB.S 08:00
PROVIDERS: ATTEND Internal Medicine
DX: N18.32 Chronic kidney disease, stage 3b (principal)
CPT/HCPCS: 81001; 81003; 87086

== ENCOUNTER 2021-12-14 07:23 | Outpatient (CLI) | payer MEDICARE, OTHER | END 2021-12-14 07:24 | disposition home or self-care (01) | LOC: LAB.S 07:23 | PROVIDERS: ATTEND Internal Medicine | DX: E11.42 Type 2 diabetes mellitus with diabetic polyneuropathy (principal) | CPT/HCPCS: 82985 ==

== ENCOUNTER 2022-01-28 07:40 | Outpatient (CLI) | payer MEDICARE, OTHER ==
[2022-01-28 15:04] LABS: ESTIMATED AVERAGE GLUCOSE 171 mg/dL (70-100); HEMOGLOBIN A1c% 7.6 % (4.27-6.07)
[2022-01-28 15:06] LABS: BUN - BLOOD UREA NITROGEN 26 mg/dL (6-20); CALCIUM 9.7 mg/dL (8.5-10.3); CARBON DIOXIDE - CO2 27 mmol/L (21-32); CHLORIDE 105 mmol/L (101-111); CHOL/HDL RATIO 3.7 (<4.4); CHOLESTEROL 156 mg/dL; CREATININE 1.5 mg/dL (0.4-1.0); GFR - MDRD 34 (>89); GLUCOSE 127 mg/dL (70-100); HDL CHOLESTEROL 42 mg/dL; LDL CHOLESTEROL,CALCULATED 90 mg/dL; LDL/HDL RATIO 2.1 (<4.4); POTASSIUM 4.8 mmol/L (3.5-5.0); SODIUM 140 mmol/L (135-145); TRIGLYCERIDES 118 mg/dL; VLDL CHOLESTEROL 24 mg/dL
[2022-01-28 15:19] LABS: MICROALBUM/CREATININE RATIO,UR 39.6 ug/mg (<30.0); MICROALBUMIN,URINE 3.6 mg/dL (0-300.0)
--- NOTE | 2022-01-28 18:15 | XRAY Report ---
PROCEDURE: Hip w/Pelvis 2-3V RT INDICATIONS: PAIN IN RIGHT HIP JOINT TECHNIQUE: AP pelvis with lateral view(s) of the right hip(s). COMPARISON: None. FINDINGS: Bones: No fractures or dislocations. Pelvic ring appears intact. No suspicious bony lesions. Moder ate degenerative bilateral hip joint space narrowing is present. Soft tissues: The visualized bowel gas pattern is normal. No suspicious soft tissue calcifications. Calcific tendinitis is present. IMPRESSION: Arthritic changes within the hips. No visualized acute fracture or dislocation. However, occult injury cannot be excluded. Recommend short interval imaging follow-up in 7-10 days as clinica lly indicated for additional evaluation. Reviewed by: Tiffanie Celis MD on 01/28/2022 5:14 PM DAT Approved by: Tiffanie Celis MD on 01/28/2022 5:14 PM DAT Station ID: [id number]
== END 2022-01-28 07:41 | disposition home or self-care (01) ==
LOC: DI.S 07:40
PROVIDERS: ATTEND Nurse Practitioner Family
DX: M16.0 Bilateral primary osteoarthritis of hip (principal); E11.65 Type 2 diabetes mellitus with hyperglycemia
CPT/HCPCS: 36415; 80048; 80061; 82043; 82570; 83036; 83721; 84443

== ENCOUNTER 2022-02-01 08:19 | Outpatient (CLI) | payer MEDICARE, OTHER ==
[2022-02-01 14:17] LABS: BASOPHILS # (AUTO) 0.1 10^3/uL (0.0-0.1); BASOPHILS % (AUTO) 0.8 %; EOSINOPHILS # (AUTO) 0.2 10^3/uL (0.0-0.7); EOSINOPHILS % (AUTO) 2.6 %; HCT - HEMATOCRIT 40.4 % (37.0-47.0); HGB - HEMOGLOBIN 12.4 g/dL (12.0-16.0); LYMPHOCYTES # (AUTO) 2.5 10^3/uL (1.5-3.5); LYMPHOCYTES % (AUTO) 28.1 %; MEAN CORPUSCULAR HEMOGLOBIN 26.5 pg (27.0-31.0); MEAN CORPUSCULAR HGB CONC 30.7 g/dL (32.0-36.0); MEAN CORPUSCULAR VOLUME 86.3 fL (81.0-99.0); MEAN PLATELET VOLUME 11.2 fL (7.9-10.8); MONOCYTES # (AUTO) 0.9 10^3/uL (0.0-1.0); MONOCYTES % (AUTO) 10.2 %; NEUTROPHILS # (AUTO) 5.1 10^3/uL (1.5-6.6); NEUTROPHILS % (AUTO) 58.1 %; PLT - PLATELET COUNT 307 10^3/uL (130-450); RED BLOOD COUNT 4.68 10^6/uL (4.20-5.40); RED CELL DISTRIBUTION WIDTH 16.8 % (12.0-15.0); WHITE BLOOD COUNT 8.7 x10^3/uL (4.8-10.8)
== END 2022-02-01 08:20 | disposition home or self-care (01) ==
LOC: LAB.S 08:19
PROVIDERS: ATTEND Nurse Practitioner Family
DX: I10 Essential (primary) hypertension (principal)
CPT/HCPCS: 36415; 85025

== ENCOUNTER 2022-02-05 10:31 | Outpatient (CLI) | payer MEDICARE, OTHER ==
[2022-02-05 15:46] LABS: % IRON SATURATION 10 % (20-50); IRON 39 ug/dL (28-170); TOTAL IRON BINDING CAPACITY 385 ug/dL (250-450); TRANSFERRIN 275 mg/dL (192-382)
== END 2022-02-05 10:32 | disposition home or self-care (01) ==
LOC: LAB.S 10:31
PROVIDERS: ATTEND Nurse Practitioner Family
DX: R71.8 Other abnormality of red blood cells (principal)
CPT/HCPCS: 36415; 82728; 83540; 84466

== ENCOUNTER 2022-03-15 08:45 | Outpatient (CLI) | payer MEDICARE, OTHER ==
[2022-03-15 14:27] LABS: BASOPHILS # (AUTO) 0.1 10^3/uL (0.0-0.1); BASOPHILS % (AUTO) 1.1 %; EOSINOPHILS # (AUTO) 0.6 10^3/uL (0.0-0.7); EOSINOPHILS % (AUTO) 6.1 %; HCT - HEMATOCRIT 41.1 % (37.0-47.0); HGB - HEMOGLOBIN 12.8 g/dL (12.0-16.0); LYMPHOCYTES # (AUTO) 2.2 10^3/uL (1.5-3.5); LYMPHOCYTES % (AUTO) 24.6 %; MEAN CORPUSCULAR HEMOGLOBIN 27.4 pg (27.0-31.0); MEAN CORPUSCULAR HGB CONC 31.1 g/dL (32.0-36.0); MEAN PLATELET VOLUME 10.9 fL (7.9-10.8); MONOCYTES % (AUTO) 11.2 %; NEUTROPHILS # (AUTO) 5.1 10^3/uL (1.5-6.6); NEUTROPHILS % (AUTO) 56.7 %; PLT - PLATELET COUNT 321 10^3/uL (130-450); RED BLOOD COUNT 4.67 10^6/uL (4.20-5.40); RED CELL DISTRIBUTION WIDTH 17.6 % (12.0-15.0)
[2022-03-15 15:17] LABS: % IRON SATURATION 20 % (20-50); IRON 71 ug/dL (28-170); TOTAL IRON BINDING CAPACITY 356 ug/dL (250-450); TRANSFERRIN 254 mg/dL (192-382)
== END 2022-03-15 08:46 | disposition home or self-care (01) ==
LOC: LAB.S 08:45
PROVIDERS: ATTEND Nurse Practitioner Family
DX: E61.1 Iron deficiency (principal)
CPT/HCPCS: 36415; 83540; 84466; 85025

== ENCOUNTER 2022-03-31 07:40 | Outpatient (CLI) | payer MEDICARE, OTHER ==
--- NOTE | 2022-04-01 08:30 | Mammography Report ---
BILATERAL DIGITAL SCREENING MAMMOGRAM 3D/2D: 03/31/2022 CLINICAL: Routine screening. Family history of breast cancer. Comparison is made to exams dated: 01/12/2021 mammogram, 08/13/2019 mammogram, 06/13/2018 mammogram, mammogram, and 02/09/2017 mammogram - [facility]. The tissue of both breas ts is heterogeneously dense. This may lower the sensitivity of mammography. No significant masses, calcifications, or other findings are seen in either breast. There has been no significant interval change. IMPRESSION: NEGATIVE There is no mammographic evidence of malignancy. A 1 year screening mammogram is recommended. Based on the Tyrer Cuzick model (a risk assessment model) the patients lifetime risk is 3.1% and her 10 year risk is 0.0%. According to the ACR, ACS, and NCCN guidelines, an annual breast MRI exam raheel g with mammogram is recommended if the patients lifetime risk is 20% or greater. This exam was interpreted at Station ID: [id number]. NOTE: For mammograms, a report in lay terms will be sent to the patient. Approximately 15% of breast malignancies will not be visualized mammographically. In the management of a palpable breast mass, a negative mammogram must not discourage biopsy of a clinically suspicious lesion. Electronically Signed By: Hernan hirsch/rupinder:03/31/2022 10:15:51 ACR BI-RADS Category 1: Negative 3341F PARENCHYMAL PATTERN: (D) - The breast(s) demonstrate(s) heterogeneously dense fibroglandular [place]. BI-RADS CATEGORY: (1) - 1 RECOMMENDATION: (ANNUAL) - Recommend routine annual screening mammography. [id number] 1 year screening LATERALITY: (B)
== END 2022-03-31 07:41 | disposition home or self-care (01) ==
LOC: DI.S 07:40
PROVIDERS: ATTEND Nurse Practitioner Family
DX: Z12.31 Encounter for screening mammogram for malignant neoplasm of breast (principal); Z80.3 Family history of malignant neoplasm of breast

== ENCOUNTER 2022-04-19 08:00 | Outpatient (CLI) | payer MEDICARE, OTHER ==
[2022-04-19 15:27] LABS: BILIRUBIN,URINE NEGATIVE (NEGATIVE); GLUCOSE, URINE (UA) >=1000 mg/dL (NEGATIVE); KETONES,URINE (UA) NEGATIVE (NEGATIVE); LEUKOCYTE ESTERASE, URINE TRACE (NEGATIVE); NITRITE,URINE POSITIVE (NEGATIVE); OCCULT BLOOD,URINE SMALL (NEGATIVE); PROTEIN,URINE NEGATIVE (NEGATIVE); UROBILINOGEN,URINE 0.2 (NORMAL) E.U./dL (NORMAL)
[2022-04-19 16:23] LABS: BACTERIA,URINE Many /HPF (None Seen); CLARITY,URINE HAZY (CLEAR); SQUAMOUS EPITHELIAL CELL,UR RARE Squamous (<= Few); WBC CLUMPS,URINE PRESENT; WBC,URINE >25 /HPF (0-5)
== END 2022-04-19 23:59 | disposition home or self-care (01) ==
LOC: LAB.S 08:00
PROVIDERS: ATTEND Emergency Medicine
DX: R30.0 Dysuria (principal)
CPT/HCPCS: 81001; 87086; 87181

== ENCOUNTER 2022-08-17 07:57 | Outpatient (CLI) | payer MEDICARE, OTHER ==
[2022-08-17 14:44] LABS: BASOPHILS # (AUTO) 0.1 10^3/uL (0.0-0.1); BASOPHILS % (AUTO) 0.6 %; EOSINOPHILS # (AUTO) 0.3 10^3/uL (0.0-0.7); HCT - HEMATOCRIT 39.4 % (37.0-47.0); HGB - HEMOGLOBIN 12.3 g/dL (12.0-16.0); LYMPHOCYTES # (AUTO) 2.5 10^3/uL (1.5-3.5); MEAN CORPUSCULAR HEMOGLOBIN 28.5 pg (27.0-31.0); MEAN CORPUSCULAR HGB CONC 31.2 g/dL (32.0-36.0); MEAN CORPUSCULAR VOLUME 91.2 fL (81.0-99.0); MEAN PLATELET VOLUME 11.2 fL (7.9-10.8); MONOCYTES % (AUTO) 12.4 %; NEUTROPHILS # (AUTO) 4.5 10^3/uL (1.5-6.6); NEUTROPHILS % (AUTO) 53.8 %; PLT - PLATELET COUNT 291 10^3/uL (130-450); RED BLOOD COUNT 4.32 10^6/uL (4.20-5.40); RED CELL DISTRIBUTION WIDTH 14.1 % (12.0-15.0); WHITE BLOOD COUNT 8.3 x10^3/uL (4.8-10.8)
[2022-08-17 15:26] LABS: BILIRUBIN,URINE NEGATIVE (NEGATIVE); CLARITY,URINE HAZY (CLEAR); FERRITIN 37.1 ng/mL (11.0-306.8); GLUCOSE, URINE (UA) NEGATIVE (NEGATIVE); KETONES,URINE (UA) NEGATIVE (NEGATIVE); LEUKOCYTE ESTERASE, URINE MODERATE (NEGATIVE); NITRITE,URINE NEGATIVE (NEGATIVE); OCCULT BLOOD,URINE NEGATIVE (NEGATIVE); PROTEIN,URINE NEGATIVE (NEGATIVE); UROBILINOGEN,URINE 0.2 (NORMAL) E.U./dL (NORMAL)
[2022-08-17 15:41] LABS: BACTERIA,URINE Few /HPF (None Seen); EPITHELIAL CELLS,UR FEW Transitional /HPF (<= Few); RBC,URINE 0-5 /HPF (0-5); SQUAMOUS EPITHELIAL CELL,UR MOD Squamous (<= Few)
[2022-08-17 15:43] LABS: CREATININE,URINE 100.5 mg/dL; MICROALBUM/CREATININE RATIO,UR 95.5 ug/mg (<30.0); MICROALBUMIN,URINE 9.6 mg/dL (0-300.0)
[2022-08-17 16:08] LABS: % IRON SATURATION 19 % (20-50); ALBUMIN 3.8 g/dL (3.2-5.5); ALBUMIN/GLOBULIN RATIO 1.2 (1.0-2.2); ALKALINE PHOSPHATASE 81 IU/L (42-121); ALT ALANINE AMINOTRANSFERASE 20 IU/L (10-60); AST ASPARTATE AMINOTRANSFERASE 20 IU/L (10-42); BILIRUBIN,TOTAL 0.6 mg/dL (0.2-1.0); BUN - BLOOD UREA NITROGEN 24 mg/dL (6-20); CALCIUM 9.3 mg/dL (8.5-10.3); CARBON DIOXIDE - CO2 26 mmol/L (21-32); CHLORIDE 100 mmol/L (101-111); CHOL/HDL RATIO 3.8 (<4.4); CHOLESTEROL 156 mg/dL; CREATININE 1.2 mg/dL (0.4-1.0); GFR - MDRD 44 (>89); GLUCOSE 134 mg/dL (70-100); HDL CHOLESTEROL 41 mg/dL; IRON 70 ug/dL (28-170); LDL CHOLESTEROL,CALCULATED 85 mg/dL; LDL/HDL RATIO 2.1 (<4.4); MAGNESIUM 1.7 mg/dL (1.7-2.8); PHOSPHORUS 3.6 mg/dL (2.5-4.6); POTASSIUM 4.1 mmol/L (3.5-5.0); SODIUM 136 mmol/L (135-145); TOTAL IRON BINDING CAPACITY 368 ug/dL (250-450); TOTAL PROTEIN 6.9 g/dL (6.7-8.2); TRANSFERRIN 263 mg/dL (192-382); TRIGLYCERIDES 150 mg/dL; URIC ACID 5.7 mg/dL (2.6-7.2); VLDL CHOLESTEROL 30 mg/dL
[2022-08-17 20:50] LABS: ESTIMATED AVERAGE GLUCOSE 197 mg/dL (70-100); HEMOGLOBIN A1c% 8.5 % (4.27-6.07)
== END 2022-08-17 07:58 | disposition home or self-care (01) ==
LOC: LAB.S 07:57
PROVIDERS: ATTEND Internal Medicine Nephrology
DX: N18.32 Chronic kidney disease, stage 3b (principal)
CPT/HCPCS: 36415; 80053; 80061; 81001; 81003; 82043; 82306; 82570; 82652; 82728; 83036; 83540; 83721; 83735; 83970; 84100; 84466; 84550; 85025; 87086

== ENCOUNTER 2023-06-06 12:15 | Outpatient (CLI) | payer MEDICARE, OTHER ==
[2023-06-06 12:44] LABS: BASOPHILS # (AUTO) 0.1 10^3/uL (0.0-0.1); BASOPHILS % (AUTO) 0.7 %; EOSINOPHILS # (AUTO) 0.3 10^3/uL (0.0-0.7); EOSINOPHILS % (AUTO) 2.9 %; HCT - HEMATOCRIT 40.7 % (37.0-47.0); HGB - HEMOGLOBIN 13.3 g/dL (12.0-16.0); LYMPHOCYTES # (AUTO) 2.9 10^3/uL (1.5-3.5); LYMPHOCYTES % (AUTO) 27.3 %; MEAN CORPUSCULAR HEMOGLOBIN 29.3 pg (27.0-31.0); MEAN CORPUSCULAR HGB CONC 32.7 g/dL (32.0-36.0); MEAN CORPUSCULAR VOLUME 89.6 fL (81.0-99.0); MEAN PLATELET VOLUME 9.8 fL (7.9-10.8); MONOCYTES # (AUTO) 1.1 10^3/uL (0.0-1.0); MONOCYTES % (AUTO) 10.7 %; NEUTROPHILS # (AUTO) 6.1 10^3/uL (1.5-6.6); PLT - PLATELET COUNT 154 10^3/uL (130-450); RED BLOOD COUNT 4.54 10^6/uL (4.20-5.40); RED CELL DISTRIBUTION WIDTH 13.9 % (12.0-15.0); WHITE BLOOD COUNT 10.5 x10^3/uL (4.8-10.8)
[2023-06-06 12:54] LABS: ALBUMIN/GLOBULIN RATIO 1.3 (1.0-2.2); BILIRUBIN,TOTAL 0.6 mg/dL (0.2-1.0); CALCIUM 9.9 mg/dL (8.5-10.3); CREATININE 1.7 mg/dL (0.6-1.3); POTASSIUM 4.2 mmol/L (3.5-4.5); TOTAL PROTEIN 7.2 g/dL (6.4-8.9)
--- NOTE | 2023-06-06 16:42 | XRAY Report ---
PROCEDURE: Chest 2 View X-Ray INDICATIONS: OTHER FORMS OF DYSPNEA TECHNIQUE: 2 views of the chest were acquired. COMPARISON: Chest x-ray 11/26/2020 FINDINGS: Surgical changes and devices: None. Lungs and pleura: No pleural effusions or pneumothorax. Lungs are clear. Mediastinum: Mediastinal contours appear normal. Heart size is normal. Bones and chest wall: No suspicious bony lesions. Overlying soft tissues appear unremarkable. IMPRESSION: No acute cardiopulmonary process. Reviewed by: Tiffanie Celis MD on 06/06/2023 4:41 PM PDT Approved by: Tiffanie Celis MD on 06/06/2023 4:41 PM PDT Station ID: [id number]
== END 2023-06-06 12:16 | disposition home or self-care (01) ==
LOC: DI 12:15
PROVIDERS: ATTEND Physician Assistant
DX: R06.09 Other forms of dyspnea (principal)
CPT/HCPCS: 36415; 80053; 85025; 85379

== ENCOUNTER 2023-06-07 09:31 | Outpatient (CLI) | payer MEDICARE, OTHER | END 2023-06-07 09:32 | disposition critical access hospital (66) | LOC: EMS 09:31 | DX: R06.02 Shortness of breath (principal); Z86.711 Personal history of pulmonary embolism | CPT/HCPCS: A0425; A0429 ==

== ENCOUNTER 2023-06-07 09:58 | Emergency (ER) | payer MEDICARE, OTHER ==
[2023-06-07] MEDS ORDERED: SODIUM CHLORIDE 0.9% 1,000 ML IV STA (11:00)
--- NOTE | 2023-06-07 11:24 | ED Physician Documentation ---
History of Present Illness - Stated complaint Stated Complaint: SOA - Chief complaint Chief Complaint: Resp - Additonal information Additional information: 78-year-old female presents to the emergency department for evaluation of progressive dyspnea. States that her shortness of air began about 2 weeks ago. She is especially short of air with exertion. Denying any chest pain. No unilateral leg swelling. Patient does have a history of pulmonary embolism diagnosed in November 2020. This was unprovoked. She had been on Xarelto. Was followed by Dr. Acuna, hematology with [facility]. She spoke with him and because they found no cause or etiology for the PE, and she had been symptom-free for over 2 years the decision was made to discontinue the Xarelto about 4 weeks ago. Patient denies any personal history of congestive heart failure, cancer, heart attack, strokes, recent travel, surgery or immobilization. Review of Systems Constitutional: denies: Fever, Chills Cardiac: reports: Calf pain. denies: Chest pain / pressure, Palpitations, Pedal edema Respiratory: reports: Dyspnea, Cough GI: reports: Reviewed and negative : reports: Reviewed and negative PD PAST MEDICAL HISTORY - Past Medical History Past Medical History: Yes Cardiovascular: Hypertension, High cholesterol, Pulmonary embolism Respiratory: Other Neuro: Peripheral neuropathy Endocrine/Autoimmune: Type 2 diabetes, HyPOthyroidism GI: Hiatal hernia, Diverticulitis, Other MANAGER [place]ARD[place]: Other : Chronic bladder infection, Other HEENT: None Psych: Depression Musculoskeletal: Other Derm: Other - Past Surgical History Past Surgical History: No General: Colonoscopy, Other /MANAGER [place]: Dilation and currettage - Present Medications Home Medications: Ambulatory Orders Medication Instructions Recorded Confirmed Glimepiride 4 mg PO BID 06/01/19 06/07/23 Omeprazole 20 mg PO DAILY 06/01/19 06/07/23 Atorvastatin [Lipitor] 40 mg PO QPM 12/23/20 06/07/23 Bifidobacterium Infantis [Align] 10.5 mg PO DAILY 12/23/20 06/07/23 Cholecalciferol (Vitamin D3) 25 mcg PO DAILY 12/23/20 06/07/23 [Vitamin D3] Levothyroxine Sodium [Euthyrox] 50 mcg PO DAILY 12/23/20 06/07/23 Multivitamin W/Minerals [Theragran 1 tab PO DAILY 12/24/20 06/07/23 M] Wheat Dextrin [Benefiber] 2 tsp PO BID 12/24/20 06/07/23 Chlorthalidone 12.5 mg ORAL DAILY 06/07/23 06/07/23 Metoprolol Succinate [Toprol Xl] 25 mg PO DAILY 06/07/23 06/07/23 Sitagliptin Phosphate [Januvia] 50 mg PO DAILY 06/07/23 06/07/23 cephALEXin [Keflex] 250 mg PO DAILY 06/07/23 06/07/23 - Allergies Allergies/Adverse Reactions: Allergies Allergy/AdvReac Type Severity Reaction Status Date / Time amlodipine Allergy Itching Verified 06/07/23 10:06 Calcium Channel Blocking Allergy Unknown Verified 12/23/20 09:27 Agent Dilt dapagliflozin [From Farxiga] Allergy Hives Verified 06/07/23 10:06 guaifenesin [From Robitussin] Allergy Unknown Verified 12/23/20 09:27 sulfamethoxazole Allergy Hives Verified 06/07/23 10:06 [From Bactrim] trimethoprim [From Bactrim] Allergy Hives Verified 06/07/23 10:06 cefuroxime AdvReac Unknown Verified 06/07/23 10:06 torsemide AdvReac Unknown Verified 06/07/23 10:06 - Social History Does the pt smoke?: No Smoking Status: Never smoker Does the pt drink ETOH?: Yes Does the pt have substance abuse?: No - Immunizations Immunizations are current?: Yes - POLST Patient has POLST: No POLST Status: Full Code PD ED PE NORMAL - General General: Alert and oriented X 3, No acute distress, Well developed/nourished - HEENT HEENT: Atraumatic, Moist mucous membranes - Neck Neck: Supple, no meningeal sign, No adenopathy - Cardiac Cardiac: RRR, No murmur - Respiratory Respiratory: No respiratory distress, Clear bilaterally - Abdomen Abdomen: Normal bowel sounds, Soft - Derm Derm: Normal color, Warm and dry - Extremities Extremities: No deformity, No tenderness to palpate - Neuro Neuro: Alert and oriented X 3 Eye Opening: Spontaneous Motor: Obeys Commands Verbal: Oriented GCS Score: 15 Results - Vitals Vitals: Vital Signs - 24 hr 06/07/23 06/07/23 06/07/23 10:06 10:38 12:46 Temperature 36.4 C L Heart Rate 84 70 69 Respiratory 28 H 20 21 Rate Blood Pressure 192/95 H 155/88 H 170/75 H O2 Saturation 87 L 97 100 If not protocol 2 2 : Oxygen Flow, liters/minute 06/07/23 06/07/23 14:41 16:37 Temperature Heart Rate 71 65 Respiratory 20 16 Rate Blood Pressure 169/95 H 172/90 H O2 Saturation 99 99 If not protocol 2 : Oxygen Flow, liters/minute Oxygen O2 Source Nasal cannula Oxygen Flow Rate 2 - EKG (time done) 1121 EKG releavant findings:: EKG personally interpreted by author of this note. Relevant findings are: Rate: Rate (enter#) (70) Rhythm: NSR [place]: Normal Intervals: Normal ME. No: Prolonged QT QRS: Poor R wave progression Ischemia: Non specific changes Compare to prior EKG: Unchanged from prior EKG Computer interpretation: Agree with computer - Labs Labs: Laboratory Tests 06/07/23 06/07/23 11:06 16:32 Troponin I High Sens 121.5 H* B-Natriuretic Peptide 69 - Rads (name of study) CT angio chest Relevant Findings:: Final report received (Bilateral pulmonary emboli extending from the right and left pulmonary arteries. There is CT evidence of right heart strain. Per radiologist this is likely an early saddle embolus) Bilateral DVT US Relevant Findings:: Final report received (negative for DVT) PD Medical Decision Making - ED course Complexity details: reviewed results, re-evaluated patient, considered differential, d/w patient, d/w family ED course: 78-year-old female presents emergency department for evaluation of about 2 weeks dyspnea especially with exertion. She does have a history of unprovoked PE in November 2020. Was on Xarelto 1 tab about 1 month ago and was advised that she could stop through her bulldogger. Given the progressive dyspnea she did see her PCP yesterday. A chest x-ray obtained showed no acute findings. CBC as interpreted by myself based on yesterday's results showed no leukocytosis thrombocytopenia or anemia. Her electrolytes reveal mildly worsened chronic kidney disease with a BUN of 28 and creatinine of 1.7. Her BNP was markedly elevated at greater than thousand. Given these findings we will proceed with a CT pulmonary angiogram today to rule out possibility of PE. It should be noted that on presentation to the emergency department patient was hypoxic on room air with saturations of 87%. This improved to 96% on 2 L. While is in the room interviewing the patient I turned off her oxygen and she was found to again desaturate to 86-87%. 1335: I been notified by the radiologist that this CT scan is positive for bilateral PEs originating from the origin of the pulmonary arteries suggestive of a saddle embolus. Given the hypoxia patient will be transferred for consideration of thrombectomy vs thrombolysis. We will initiate the patient on heparin in the interim 1615: I spoken with Dr. Acuna, hospitalist at [facility] in [place] he graciously agrees to accept the patient in transfer. He is requesting a troponin which I have ordered. Patient remains hemodynamically stable on a heparin infusion. Though on room air her sats immediately declined to 85-86%. 2 L nasal cannula allows her to have saturations of 97% 1715: Patient's troponin is 112.5. High-sensitivity cutoff is 15 for a female. This does indicate the patient has some moderate right heart strain in the setting of a saddle pulmonary embolism. This information has been faxed to [facility] in [place]. Appropriate COBRA paperwork completed. Departure - Departure Disposition: 02 Transfer Acute Care Hosp Clinical Impression: Hypoxia, History of pulmonary embolus (PE) Pulmonary embolism Qualifiers: Pulmonary embolism type: saddle Chronicity: acute Acute cor pulmonale presence: unspecified Qualified Code(s): I26.92 - Saddle embolus of pulmonary artery without acute cor pulmonale Forms: PCP List
--- NOTE | 2023-06-07 13:37 | CT Report ---
PROCEDURE: ANGIO CHEST W/WO INDICATIONS: eval for PE CONTRAST: 80ml opti 320 TECHNIQUE: After the administration of intravenous contrast, 2 mm axial images were acquired from the pulmonary apices to the posterior costophrenic angles during the arterial phase. In addition, 1 mm lung kernel and 5 mm soft tissue kernel reconstructions were performed. 3-dimensional coronal oblique maximum int ensity projection (MIP) reformats, 8 mm axial MIP, and 5 mm coronal and sagittal MPR reformats were t hen performed through the thorax. For radiation dose reduction, the following was used: automated exp osure control, adjustment of mA and/or kV according to patient size. COMPARISON: 12/23/2020 FINDINGS: Image quality: There is motion artifact. Lungs and pleura:There is no significant airspace disease. No pleural effusions. No significant findi ng within the limitations of motion artifact. Mediastinum, heart, and esophagus: Bilateral pulmonary emboli. There is CT evidence of right heart st rain. No hiatal hernia. No lymphadenopathy by size criteria. Chest wall and thyroid: Chest wall is unremarkable Upper abdomen: No gross abnormality on these limited arterial phase images. Bones: Degenerative changes, no acute or suspicious abnormality. IMPRESSION: Bilateral pulmonary emboli, extending from the right and left pulmonary arteries. There is CT evidenc e of right heart strain. Report called to the [facility] ED. Motion degraded CT. Reviewed by: Buster Fraser MD on 06/07/2023 1:36 PM PDT Approved by: Buster Fraser MD on 06/07/2023 1:36 PM PDT Station ID: [id number]
[2023-06-07] MEDS ORDERED: HEPARIN 25000UNITS/500ML (D5W) 25,000 UNIT/500 ML BAG IV SCH (14:00)
--- NOTE | 2023-06-07 14:23 | Ultrasound Report ---
PROCEDURE: Duplex Ext Veins Bilateral INDICATIONS: History of pulmonary embolus. Calf pain. TECHNIQUE: Real-time imaging, as well as color and pulse Doppler interrogation, were performed of the deep veins of both legs from the inguinal ligament to the popliteal fossa. Attempted visualization of the calf veins was performed. COMPARISON: None FINDINGS: The deep veins are normally compressible, and free of intraluminal thrombus. Color and pu lse Doppler demonstrate normal phasic intravascular flow. There is normal augmentation response to d istal compression maneuver. IMPRESSION: No deep venous thrombosis of the visualized lower extremities. Reviewed by: Fariha Sousa MD, PhD on 06/07/2023 2:22 PM PDT Approved by: Fariha Sousa MD, PhD on 06/07/2023 2:22 PM PDT Station ID: [id number]
[2023-06-07] MEDS ORDERED: IOVERSOL 320 100 ML VIAL IVP ONE (17:02)
[2023-06-07 19:55] VITALS: BP 168/81; O2SAT 99
== END 2023-06-07 19:55 | disposition short-term general hospital (02) ==
LOC: EDUNIT# → SUPCPDRO 09:58 → ED 09:58
DX: I26.92 Saddle embolus of pulmonary artery without acute cor pulmonale (principal); R09.02 Hypoxemia; I10 Essential (primary) hypertension; E11.9 Type 2 diabetes mellitus without complications; Z79.4 Long term (current) use of insulin
CPT/HCPCS: 36415; 71275; 83880; 84484; 85730; 93005; 93970; 96374; 99285; Q9967

== ENCOUNTER 2023-11-02 08:01 | Outpatient (CLI) | payer MEDICARE, OTHER | END 2023-11-02 08:02 | disposition home or self-care (01) | LOC: DI 08:01 | PROVIDERS: ATTEND Internal Medicine Cardiovascular Disease | DX: I26.92 Saddle embolus of pulmonary artery without acute cor pulmonale (principal); I51.7 Cardiomegaly | CPT/HCPCS: 93307 ==

== ENCOUNTER 2023-12-07 08:27 | Outpatient (CLI) | payer MEDICARE, OTHER ==
[2023-12-07 08:54] LABS: CALCIUM 9.3 mg/dL (8.5-10.3); CREATININE 1.6 mg/dL (0.6-1.3); POTASSIUM 4.5 mmol/L (3.5-4.5)
== END 2023-12-07 08:28 | disposition home or self-care (01) ==
LOC: LAB 08:27
PROVIDERS: ATTEND Nurse Practitioner Family
DX: I26.92 Saddle embolus of pulmonary artery without acute cor pulmonale (principal)
CPT/HCPCS: 36415; 80048

== ENCOUNTER 2023-12-07 08:27 | Outpatient (CLI) | payer MEDICARE, OTHER ==
[2023-12-07] MEDS ORDERED: iohexoL-300 100 ML VIAL ONE (08:56)
--- NOTE | 2023-12-07 11:05 | CT Report ---
PROCEDURE: Angio Chest INDICATIONS: SADDLE PE CONTRAST: Omni 300 80ml TECHNIQUE: After the administration of intravenous contrast, 2 mm axial images were acquired from the pulmonary apices to the posterior costophrenic angles during the arterial phase. In addition, 1 mm lung kernel and 5 mm soft tissue kernel reconstructions were performed. 3-dimensional coronal oblique maximum int ensity projection (MIP) reformats, 8 mm axial MIP, and 5 mm coronal and sagittal MPR reformats were t hen performed through the thorax. For radiation dose reduction, the following was used: automated exp osure control, adjustment of mA and/or kV according to patient size. COMPARISON: CT 06/07/2023. 08/12/2019 FINDINGS: Image quality: Excellent. Large vessels: No filling defects within the opacified pulmonary arteries, accounting for motion and contrast timing. No evidence of acute aortic syndrome or aortic aneurysm. Lungs and pleura: No consolidation. No pleural effusions. No pneumothorax. No suspicious pulmonary n odules which require follow up. Mosaic attenuation. Mediastinum: Heart size is enlarged. No pericardial effusion. No large vessel abnormality. No mediast inal adenopathy by size criteria. Moderate coronary calcifications. Chest wall and lower neck: Thyroid is unremarkable. No axillary or supraclavicular adenopathy by size . Bones: No aggressive osseous abnormality. Upper Abdomen: Similar low-level attenuating lesion in segment 5/6 of the liver. IMPRESSION: Resolved pulmonary embolus. Mosaic attenuation of the lungs, suggestive of diffuse air trapping in the setting of small airways o r vessels disease. Reviewed by: Santos Horan MD on 12/07/2023 11:03 AM PDT Approved by: Santos Horan MD on 12/07/2023 11:03 AM PDT Station ID: [id number]
[2023-12-07] MEDS: iohexoL-300 100 ML VIAL IVP ONE (14:42)
== END 2023-12-07 08:28 | disposition home or self-care (01) ==
LOC: DI 08:27
PROVIDERS: ATTEND Nurse Practitioner Family
DX: I26.92 Saddle embolus of pulmonary artery without acute cor pulmonale (principal)
CPT/HCPCS: 71275; Q9967

== ENCOUNTER 2024-01-23 08:00 | Outpatient (CLI) | payer MEDICARE, OTHER | END 2024-01-23 23:59 | disposition home or self-care (01) | LOC: LAB.S 08:00 | PROVIDERS: ATTEND Nurse Practitioner | DX: R30.0 Dysuria (principal) | CPT/HCPCS: 87086 ==

== ENCOUNTER 2024-04-17 07:39 | Outpatient (CLI) | payer MEDICARE, OTHER ==
--- NOTE | 2024-04-17 11:53 | Mammography Report ---
BILATERAL DIGITAL SCREENING MAMMOGRAM 3D/2D: 04/17/2024 CLINICAL: Routine screening. Family history of breast cancer. Comparison is made to exams dated: 04/06/2023 mammogram, 03/31/2022 mammogram, and 01/12/2021 mammogram - [facility]. Both breasts are heterogeneously dense, which may obscure small masses (category c / 51-75% glandular tissue). No significant masses, calcifications, or other findings are seen in either breast. There has been no significant interval change. IMPRESSION: NEGATIVE There is no mammographic evidence of malignancy. A 1 year screening mammogram is recommended. Based on the Tyrer Cuzick model (a risk assessment model) the patient's lifetime risk is 2.9% and her 10 year risk is 0.0%. According to the ACR, ACS, and NCCN guidelines, an annual breast MRI exam raheel g with mammogram is recommended if the patient's lifetime risk is 20% or greater. This exam was interpreted at Station ID: [id number]. NOTE: For mammograms, a report in lay terms will be sent to the patient. Approximately 15% of breast malignancies will not be visualized mammographically. In the management of a palpable breast mass, a negative mammogram must not discourage biopsy of a clinically suspicious lesion. Electronically Signed By: Hitesh mark/rupinder:04/17/2024 10:34:08 letter sent: No_Letter ACR BI-RADS Category 1: Negative [id number] PARENCHYMAL PATTERN: (D) - The breast(s) demonstrate(s) heterogeneously dense fibroglandular [place]. BI-RADS CATEGORY: (1) - 1 RECOMMENDATION: (ANNUAL) - Recommend routine annual screening mammography. [id number] 1 year screening LATERALITY: (B)
== END 2024-04-17 07:40 | disposition home or self-care (01) ==
LOC: DI.S 07:39
PROVIDERS: ATTEND Nurse Practitioner Family
DX: Z12.31 Encounter for screening mammogram for malignant neoplasm of breast (principal); R92.333 Mammographic heterogeneous density, bilateral breasts; Z80.3 Family history of malignant neoplasm of breast

== ENCOUNTER 2024-05-03 08:00 | Outpatient (CLI) | payer MEDICARE, OTHER | END 2024-05-03 23:59 | disposition home or self-care (01) | LOC: LAB 08:00 | PROVIDERS: ATTEND Urology | DX: Z87.440 Personal history of urinary (tract) infections (principal) | CPT/HCPCS: 87086; 87181 ==